=== PATIENT | female | born 1950 | race Caucasian/White ===

== ENCOUNTER → 2016-04-12 | Outpatient (CLI) | payer OTHER ==
[~2016-04-12] MED LIST: ALBU1AER9 INH; AZEL0.15 NAE; BROM0.07 OPR; CALC600T9 PO; FLUT27.5 NAE; GABA-112 PO; HYDR25TA5 PO; LISI40TA PO; METO1TAB71 PO; MULT-506 PO; OMEG10007 PO; OMEP40CA PO; OXYC5TAB PO; PLMIN90 INH; RIZA10TA19 PO; SERT-234 PO
--- NOTE | 2016-04-12 15:47 | MAMMOGRAPHY REPORT ---
ULTRASOUND OF LEFT BREAST: 04/12/2016 CLINICAL HISTORY: The patient has a history of bilateral mastectomies as well as a left axillary sen tinel lymph node which was positive for metastatic disease. The patient reports aching left axillar y pain for approximately 4 weeks. She denies any palpable lumps. She reports that she has been eng aging in strenuous activity which could account for the pain. COMPARISON: Comparison is made to exam dated: 02/21/2012 mammogram - [facility]. TECHNIQUE: Real-time ultrasound of the left axilla was performed. FINDINGS: Real-time, high-resolution ultrasound was performed of the left axilla. Multiple morphologically no rmal lymph nodes are seen within the left axillary region. There is no evidence of axillary adenopa thy. No suspicious masses or other suspicious sonographic abnormalities are evident. IMPRESSION: ACR BI-RADS CATEGORY 2: BENIGN No sonographic etiology for left axillary pain is evident. No axillary adenopathy is evident. Ther e is no sonographic evidence of malignancy. Recommend clinical follow-up for left axillary pain. T he patient was verbally notified of the results. Verito Herzog M.D. ah/:04/12/2016 14:08:21 Package Liner: Verito Herzog MD, [facility] letter sent: Normal 1/2 BI-RADS Code: ACR BI-RADS Category 2: Benign
== END | disposition home or self-care (01) ==
LOC: C.MAMM 13:44
PROVIDERS: ATTEND Internal Medicine Hematology
DX: M79.622 Pain in left upper arm (principal); Z90.13 Acquired absence of bilateral breasts and nipples; Z85.3 Personal history of malignant neoplasm of breast

== ENCOUNTER → 2016-07-01 | Outpatient (CLI) | payer OTHER ==
--- NOTE | 2016-07-01 15:28 | DIAGNOSTIC IMAGING REPORT ---
CHEST 2 VIEWS ROUTINE CLINICAL HISTORY: Productive cough, shortness of breath. Wheezing. COMPARISON STUDY: 08/16/2015 FINDINGS: The heart is normal in size. There is no failure. There is no focal pulmonary consolidation. There are no pleural effusions. There are surgical clips in the right axillary region and both breasts.[ IMPRESSION: No active disease in the chest. Electronically signed by: Demetrius Ruano M.D. 07/01/2016 3:26 PM Dictated Date/Time: 07/01/2016 3:25 PM
== END | disposition home or self-care (01) ==
LOC: C.RAD 14:51
PROVIDERS: ATTEND Internal Medicine Geriatric Medicine
DX: R05 Cough (principal)

== ENCOUNTER → 2016-09-11 | Outpatient (CLI) | payer OTHER ==
[~2016-09-11] MED LIST changes: +ASPI-391 PO; +ASPI81TA28 PO; +ASTN; +DIPH-416 PO; +METO-649 PO; -METO1TAB71 PO; +MOME100A INH; +OMEP40CA41 PO; +VNTHFA/IN INH
[2016-09-11 10:42] LABS: BASO % 0.5 %; BASO ABS # 0.03 K/uL (0-0.2); COMPLETE YES; EOS % 2.2 %; HEMATOCRIT 42.7 % (37-47); IG% 0.3 %; LYMPH % 20.2 %; LYMPH ABS # 1.31 K/uL (1.2-3.4); MEAN CELL VOLUME 92.4 fL (80-100); MEAN CORPUSCULAR HEMOGLOBIN 31.4 pg (25-34); MEAN PLATELET VOLUME 9.3 fL (7.4-10.4); MONO % 9.1 %; NEUT % 67.7 %; PLATELET COUNT 243 K/uL (130-400); RED BLOOD COUNT 4.62 M/uL (4.2-5.4); WHITE BLOOD COUNT 6.48 K/uL (4.8-10.8)
[2016-09-11 11:11] LABS: ESTIMATED AVERAGE GLUCOSE 126 mg/dl; HA1C FLAG Normal (Normal)
[2016-09-11 11:30] LABS: ALKALINE PHOSPHATASE 85 U/L (45-117); ALT/SGPT 30 U/L (12-78); AST/SGOT 20 U/L (15-37); BLOOD UREA NITROGEN 17 mg/dl (7-18); BUN/CREATININE RATIO 27.6 (10-20); CALCIUM 8.4 mg/dl (8.5-10.1); CARBON DIOXIDE 30 mmol/L (21-32); CHLORIDE 105 mmol/L (98-107); CHOLESTEROL 254 mg/dl (0-200); CHOLESTEROL/HDL RATIO 5.3; CREATININE 0.61 mg/dl (0.60-1.20); GLUCOSE 101 mg/dl (70-99); HDL CHOLESTEROL 48 mg/dl; LDL CHOLESTEROL CALCULATED 166 mg/dl; POTASSIUM 3.7 mmol/L (3.5-5.1); SODIUM 143 mmol/L (136-145); TRIGLYCERIDES 202 mg/dl (0-150); VERY LOW DENSITY LIPOPROT CALC 40 mg/dl
== END | disposition home or self-care (01) ==
LOC: C.LAB 09:53
PROVIDERS: ATTEND Internal Medicine Geriatric Medicine
DX: I10 Essential (primary) hypertension (principal); G43.009 Migraine without aura, not intractable, without status migrainosus; E78.5 Hyperlipidemia, unspecified; R73.9 Hyperglycemia, unspecified; J45.909 Unspecified asthma, uncomplicated; I48.0 Paroxysmal atrial fibrillation; M85.80 Other specified disorders of bone density and structure, unspecified site

== ENCOUNTER → 2016-12-06 | Outpatient (CLI) | payer OTHER ==
[~2016-12-06] MED LIST changes: -METO-649 PO; +METO1TAB71 PO
== END | disposition home or self-care (01) ==
LOC: C.PAPS 13:57
PROVIDERS: ATTEND Obstetrics & Gynecology
DX: Z12.4 Encounter for screening for malignant neoplasm of cervix (principal)

== ENCOUNTER → 2016-12-26 | Outpatient (CLI) | payer OTHER ==
[~2016-12-26] MED LIST changes: +OPTIRAY 320 IV PRN
--- NOTE | 2016-12-26 11:55 | DIAGNOSTIC IMAGING REPORT ---
ADDENDUM ADDENDUM: There is an error in the impression. The impression should read that there are no acute infectious or inflammatory findings in the abdomen. The pelvis was not imaged. All findings the body of report are unchanged. Electronically signed by: Iam Mercado M.D. 12/26/2016 1:25 PM Dictated Date/Time: 12/26/2016 1:[address] SCAN OF THE ABDOMEN WITH IV CONTRAST CLINICAL HISTORY: Generalized abdominal pain. COMPARISON STUDY: Abdominal CT dated 09/19/2005. PET/CT dated 04/10/2015. TECHNIQUE: Following the IV administration of 94 cc of Optiray 320, CT scan of the abdomen is performed from the lung bases to the pelvic inlet. Images are reviewed in the axial, sagittal, and coronal planes. IV contrast was administered without complication. A dose lowering technique was utilized adhering to the principles of ALARA. CT DOSE: 529.08 mGycm FINDINGS: Lung bases: The heart is normal in size and without pericardial effusion. The lung bases are clear. There is a small hiatal hernia. Liver: The contrast-enhanced liver is normal in size, contour, and attenuation. Focal fatty infiltration is seen adjacent to the falciform ligament. There is no intrahepatic biliary ductal dilatation. The hepatic veins and portal veins are patent. Gallbladder: Unremarkable. Spleen: Normal in size and attenuation. Pancreas: Unremarkable. Adrenal glands: Unremarkable. Kidneys: The contrast enhanced kidneys are normal in size and without hydronephrosis. The kidneys enhance symmetrically. A 1.4 cm cyst is noted on the right. Abdominal vasculature: The abdominal aorta is normal in course and caliber noting mild atherosclerotic calcification. Bowel: Visualized portions of the small bowel and colon are normal in course and caliber. The appendix is not visualized. Peritoneum: There is no intraperitoneal free air or abdominal ascites. There is a small fat-containing umbilical hernia. Lymphadenopathy: There is a 3.2 x 2.0 cm heterogeneously enhancing lesion the gastrohepatic space adjacent to the caudate lobe of the liver, likely representing a pathologically enlarged lymph node. This is seen on axial image #96. An additional mildly enlarged gastrohepatic node is seen on image #102 and measures up to 1.3 cm. Skeletal structures: The skeletal structures are osteopenic. Mild lumbosacral spondylosis is observed. No lytic or blastic lesions are seen. IMPRESSION: 1. There are no acute infectious or inflammatory findings in the abdomen or pelvis. 2. There is a 3.2 cm heterogeneously enhancing lesion in the gastrohepatic space which likely represents a pathologic lymph node. A second mildly enlarged gastrohepatic node is seen. These are new from the 04/10/2015 PET examination and neoplasm is the diagnosis of exclusion. This was likely best be assessed with endoscopy and biopsy. Electronically signed by: Iam Mercado M.D. 12/26/2016 11:53 AM Dictated Date/Time: 12/26/2016 11:30 AM
== END | disposition home or self-care (01) ==
LOC: C.CTS 10:54
PROVIDERS: ATTEND Internal Medicine Geriatric Medicine
DX: R10.84 Generalized abdominal pain (principal)

== ENCOUNTER → 2017-01-08 | Outpatient (CLI) | payer OTHER ==
[~2017-01-08] MED LIST changes: -ASPI-391 PO; -ASPI81TA28 PO; -ASTN; -DIPH-416 PO; -MOME100A INH; -OMEP40CA41 PO; -OPTIRAY 320 IV PRN; -VNTHFA/IN INH
--- NOTE | 2017-01-08 15:07 | DIAGNOSTIC IMAGING REPORT ---
PET/CT CLINICAL HISTORY: Breast cancer. TECHNIQUE: A PET/CT was performed from the skull base through the upper thighs following intravenous injection of 14.81 mCi of F 18 FDG IV. The injection was performed at 9:04 AM on January 08, 2017 and imaging began at 10:12 AM on January 08, 2017. Unenhanced CT was performed for attenuation correction purposes and anatomic localization. COMPARISON STUDY: PET CT April 10, [address] of the abdomen and pelvis December 26, 2016. FINDINGS: Head and neck: No enlarged cervical lymph nodes are identified. There is no abnormal FDG uptake within the neck. Chest: There are findings consistent with bilateral mastectomies with reconstruction. There is no axillary lymphadenopathy. Note is made of an enlarged subcarinal lymph node which is a new finding since PET/CT of April 10, 2015. This node measures 2 x 1.6 cm and has moderate FDG uptake with an SUV max of 4.7. No suspicious pulmonary nodules are identified although sensitivity is diminished due to respiratory motion artifact inherent PET/CT imaging. There is a calcified granuloma within the right lung. Abdomen and Pelvis: There is marked FDG uptake within a 2.8 x 2.1 cm gastrohepatic ligament lymph node with an SUV max of 10.8. This finding is also new since PET/CT of April 10, 2015 and this corresponds to the lymph node shown on recent abdominal CT. An adjacent 1 cm periceliac node shown on axial image 110 has moderate FDG uptake with an SUV max of 6.6. There are gallstones within the gallbladder. No additional sites of abnormal FDG uptake are identified within the abdomen or the pelvis. Numerous suspected uterine fibroids are present. There is no pelvic lymphadenopathy. Musculoskeletal: No suspicious skeletal uptake is identified. IMPRESSION: Marked FDG uptake within a 2.8 x 2.1 cm gastrohepatic ligament lymph node with moderate uptake within a mildly enlarged periceliac lymph node and an enlarged subcarinal lymph node. The findings are highly suggestive of a neoplastic process and favor metastatic disease. Lymphoma could appear similar although is considered less likely. Electronically signed by: Jeremiah Lamb M.D. 01/08/2017 3:06 PM Dictated Date/Time: 01/08/2017 12:22 PM
== END | disposition home or self-care (01) ==
LOC: C.PET 08:43
PROVIDERS: ATTEND Internal Medicine Hematology
DX: C50.911 Malignant neoplasm of unspecified site of right female breast (principal); C73 Malignant neoplasm of thyroid gland; R59.0 Localized enlarged lymph nodes

== ENCOUNTER → 2017-01-24 | Day surgery (SDC) | payer OTHER ==
[2017-01-16 10:00] VITALS: BMI 31.0
[~2017-01-24] VITALS: Ht 152.4 cm; Wt 72.7 kg
[~2017-01-24] MED LIST changes: -ALBU1AER9 INH; +ASPI-391 PO; +ASPI81TA28 PO; +ASTN; +ATROPINE SULFATE 0.1 MG/ML 5ML SYR IV PRN; -AZEL0.15 NAE; -BROM0.07 OPR; +DIPH-416 PO; +FENTANYL CITRATE INJ 50 MCG/1 ML 2 ML VIAL IV PRN; -FLUT27.5 NAE; -GABA-112 PO; -HYDR25TA5 PO; +KETAMINE HCL INJ 50 MG/ML 10 ML VIAL ONE; +LIDOCAINE HCL 2% 2 ML VIAL (20MG/ML) ONE; +MIDAZOLAM HCL 1 MG/ML 2ML VIAL ONE; +MOME100A INH; -OMEP40CA PO; +OMEP40CA41 PO; +ONDANSETRON INJ 2 MG/ML 2 ML VIAL IV PRN; -OXYC5TAB PO; -PLMIN90 INH; +PROPOFOL IV EMULSION 10 MG/ML 20 ML VIAL IV ONE; +SODIUM CHLORIDE 0.9% 500ML 500 ML IV ONE; +VNTHFA/IN INH
[2017-01-24 14:12] VITALS: BP 139/91; PULSE 71; TEMP 36.6; O2SAT 97; Ht 152.4 cm; Wt 72.7 kg
--- NOTE | 2017-01-24 15:19 | Progress Note ---
Progress Note Date of Service Jan 24, 2017. Progress Note [facility] [address] [place] [address] Endoscopy History & Physical Patient Name: Megan Troncoso Unit Number: [id number] Date of : 1950 Patient Status: Registered Surgical Day Care Attending Doctor: Simón Bloom MD History & Physical - GI History & Physical Date of Service: Jan 24, 2017. Chief Complaint: Referring Physician: History of Present Illness 66 year-old female, a case of left breast carcinoma, S/P lumpectomy and sentinel lymph felipe biopsy by Dr. Vyas, primary tumor measuring 1.7 cm, one sentinel lymph node positive for metastatic disease measuring 3 mm, Oncotype DX recurrence score 17 which falls into low-risk category, she then opted for bilateral mastectomies~(May,). ~She had right breast cancer earlier in 2000. Her several years of normal surveillance CT PET scans, after development of abdominal pain chest CT scan and subsequent PET scan that revealed a large gastrohepatic lymph node that was metabolically active. She is presenting for an endoscopic ultrasound for evaluation of this abdominal lymph node. CT PET scan There is marked FDG uptake within a 2.8 x 2.1 cm gastrohepatic ligament lymph node with an SUV max of 10.8. This finding is also new since PET/CT of April 10, 2015 and this corresponds to the lymph node shown on recent abdominal CT. An adjacent 1 cm periceliac node shown on axial image 110 has moderate FDG uptake with an SUV max of 6.6. There are gallstones within the gallbladder. No additional sites of abnormal FDG uptake are identified within the abdomen or the pelvis. Numerous suspected uterine fibroids are present. There is no pelvic lymphadenopathy. Past Medical History Arthritis, Asthma, Pulmonary Emboli, Anxiety, Reflux, Cancer, Sleep Apnea, Hypertension, Depression Past Surgical History Hx Cardiac Surgery: No Hx Abdominal Surgery: No Hx Post-Op Nausea and Vomiting: Yes Hx Cancer Surgery: Yes (RIGHT LUMPECTOMY, DOUBLE MASTECTOMY) Hx Thoracic Surgery: No Hx Orthopedic: No (LEFT ANKLE ORIF) Hx Urinary Tract Surgery: Yes (bladder sling) Social History Smoking Status: Never Smoker Hx Substance Use: No Hx Alcohol Use: No Allergies Coded Allergies: Morphine (Verified Allergy, Intermediate, MAKES HER CRAZY, 01/24/17) Adhesives (Verified Allergy, Unknown, ITCHY SKIN, 01/24/17) Esomeprazole (Verified Adverse Reaction, Unknown, listed on [facility]/ dr. sofia consult, 01/24/17) Current Medications Reported Home Medications Medications Dose Route/Sig Max Daily Dose Days Date Category Aspirin Ec (Aspirin) 81 Mg Tab 81 Mg PO QAM 01/16/17 Reported Excedrin Extra Strength (Empvqqc-Imfrffjynhzwc-Gsihsrpt) 1 Tab Tab 1 Tab PO 3-4WEEKLY PRN 01/16/17 Reported Lomotil (Diphenoxylate HCl/Atropine) Tab 1 Tab PO BID PRN 01/16/17 Reported Astelin Nasal Angelica (Azelastine Hcl) 200 Sprays/30 Ml Angelica 1-2 Sprays NA BID 01/16/17 Reported Dulera 100/5 Mcg (Mometasone Furoate-Formoterol) 1 Aer Aer 2 Aer INH QAM 01/16/17 Reported Prilosec (Omeprazole) 40 Mg Cap 40 Mg PO QAM 01/16/17 Reported Ventolin Hfa (Albuterol) 200 Puffs/40339 Mcg Aers 1-2 Puffs INH Q6H PRN 01/16/17 Reported Multivitamin (Multivitamins) Tab 1 Tab PO QAM 06/22/15 Reported Calcium + D (Calcium Carbonate-Vitamin D) 1 Tab Tab 1 Tab PO QAM 06/22/15 Reported Hancock-3 (Fish Oil) 1 Ea Cap 1 Cap PO QAM 06/22/15 Reported Prinivil (Lisinopril) 40 Mg Tab 40 Mg PO QPM 06/22/15 Reported Zoloft (Sertraline HCl) 100 Mg Tab 200 Mg PO QPM 06/22/15 Reported Toprol-Xl (Metoprolol Succinate) 200 Mg Tabcr 200 Mg PO QPM 04/01/12 Reported Maxalt[employer] (Rizatriptan Benzoate) 10 Mg Tab 10 Mg PO UD PRN 04/01/12 Reported Vital Signs Weight (Kilograms): 72.73 Height (Feet): 5 Height (Inches): 0 Physical Exam General Appearance: WD/WN, no apparent distress Respiratory/Chest: Respiratory effort: no dyspnea Auscultation: breath sounds normal Cardiovascular: Heart Auscultation: RRR, normal S1 Abdomen: Bowel Sounds: normal Inspection & Palpation: soft, non-distended Assessment and Plan 66-year-old with recurrent breast cancer, status post remote recovery of bilateral mastectomies now with a metabolically active abdominal lymph node presenting for endoscopic ultrasound.
--- NOTE | 2017-01-24 16:21 | Discharge Instructions ---
Endoscopy Patient Instructions Date / Procedure(s) Performed Jan 24, 2017. Other (Endoscopic ultrasound) Allergy Information Coded Allergies: Morphine (Verified Allergy, Intermediate, MAKES HER CRAZY, 01/24/17) Adhesives (Verified Allergy, Unknown, ITCHY SKIN, 01/24/17) Esomeprazole (Verified Adverse Reaction, Unknown, listed on [facility]/ dr. sofia consult, 01/24/17) Discharge Date / Findings Jan 24, 2017. Large abdominal lymph nodes Fine needle aspiration was performed. Provider Instructions Activity Restrictions - No exercising or heavy lifting for 24 hours. - Do not drink alcohol the day of the procedure. - Do not drive a car or operate machinery until the day after the procedure. - Do not make any important decisions or sign important papers in 24 hours after the procedure. Following Day: - Return to full activity which may include returning to work/school. Diet Start your diet with liquids and light foods (jello, soup, juice, toast). Then eat your usual diet if not nauseated. Treatment For Common After Affects For mild abdominal pain, bloating, or excessive gas: - Rest - Eat lightly - Lie on right side Follow-Up Information Follow-up with as scheduled Anesthesia Information What You Should Know You have had a procedure that required some medicine to reduce anxiety and discomfort. This treatment is called moderate sedation. After receiving the treatment, you may be sleepy, but you will be able to breathe on your own. The effects of the treatment may last for several hours. Follow these instructions along with Activity/Diet recommendations noted above: * Do NOT do anything where dizziness or clumsiness would be dangerous. * Rest quietly at home today, then you can be up and about tomorrow. * Have a responsible person stay with you the rest of today. * You may have had an I.V. today. If so, you may take the dressing off later today. Recommendations Call your doctor if: * Trouble breathing * Continuous vomiting for more than 24 hours * Temperature above 101 degrees * Severe abdominal pain or bloating * Pain not relieved by pain medicine ordered * There is increased drainage or redness from any incision * A large amount of rectal bleeding greater than 2-3 tablespoons. (If you had a polyp/s removed or have hemorrhoids, a small amount of blood - from the rectum is to be expected.) * You have any unanswered questions or concerns. IN THE EVENT OF A SERIOUS EMERGENCY, GO TO THE NEAREST EMERGENCY ROOM Your discharge instructions were prepared by provider Simón Bloom. Patient Instructions Signature Page Megan Troncoso Patient (or Guardian) Signature/Date: I have read and understand the instructions given to me by my caregivers. Caregiver/RN/Doctor Signature/Date: The above-named patient and/or guardian has received patient instructions on this date. + Original Patient Signature Page (only) stays with chart. Please make copy for patient.
--- NOTE | 2017-01-24 16:34 | GI REPORT ---
Procedure Date: 01/24/2017 3:47 PM Procedure: Upper EUS Indications: Lymphadenopathy on CT scan-Positive on PET scan and history of recurrent pancreatitis. Medicines: General Anesthesia Complications: No immediate complications. Estimated blood loss: None. Estimated Blood Loss: Estimated blood loss: none. Procedure: Pre-Anesthesia Assessment: - Pre-Anesthesia Assessment: - Prior to the procedure, a History and Physical was performed, and patient medications, allergies and sensitivities were reviewed. The patient's tolerance of previous anesthesia was reviewed. Please see [employer] for complete details. - The risks and benefits of the procedure and the sedation options and risks were discussed with the patient. All questions were answered and informed consent was obtained. - Patient identification and proposed procedure were verified prior to the procedure by the physician and the nurse. The procedure was verified in the pre-procedure area in the procedure room. After obtaining informed consent, the endoscope was passed carefully and meticuously under direct vision and only advanced when the lumen was clearly identified, C02 insuflation was utilized throughout the entirity of the procedure. Throughout the procedure, the patient's blood pressure, pulse, and oxygen saturations were monitored continuously. After obtaining informed consent, the endoscope was passed under direct vision. Throughout the procedure, the patient's blood pressure, pulse, and oxygen saturations were monitored continuously. The Endosonoscope was introduced through the mouth, and advanced to the second part of duodenum. The upper EUS was accomplished without difficulty. The patient tolerated the procedure well. Findings: Endosonographic Finding : There was no sign of significant endosonographic abnormality in the entire pancreas. There was no sign of significant endosonographic abnormality in the left lobe of the liver. Two malignant-appearing lymph nodes were visualized in the celiac region (level 20). The largest measured 30 mm by 23 mm in maximal cross-sectional diameter. The nodes were round, hypoechoic and had well defined margins. Fine needle aspiration for cytology was performed. Color Doppler imaging was utilized prior to needle puncture to confirm a lack of significant vascular structures within the needle path. Four passes were made with the 22 gauge needle using a transgastric approach. A stylet was used. A processor grain was present and performed a preliminary cytologic examination. Preliminary cytology is suspicious for malignancy (final results are pending). Impression: - There was no sign of significant pathology in the entire pancreas. - There was no evidence of significant pathology in the left lobe of the liver. - Two malignant-appearing lymph nodes were visualized in the celiac region (level 20). Fine needle aspiration performed. Recommendation: - Discharge patient to home (with escort). - Return to referring physician as previously scheduled. Simón Bloom MD 01/24/2017 4:34:03 PM This report has been signed electronically. Note Initiated On: 01/24/2017 3:47 PM I attest to the content of the Intraoperative Record and orders documented therein, exceptions below
[2017-01-24 16:53] VITALS: BP 168/88; PULSE 63; TEMP 36.7; O2SAT 96
--- NOTE | 2017-01-24 16:58 | Anesthesiology Progress Note ---
Anesthesia Post Op Note Date & Time Jan 24, 2017 at 16:58 Vital Signs Pain Intensity: 0 Vital Signs Past 12 Hours Date Time Temp Pulse Resp B/P (MAP) Pulse Ox O2 Delivery O2 Flow Rate FiO2 01/24/17 16:40 36.2 66 16 158/89 95 Room Air 01/24/17 16:35 65 16 151/94 95 Room Air 01/24/17 16:26 36.2 74 16 155/96 92 Room Air 01/24/17 14:12 36.6 71 18 139/91 (107) 97 Room Air Notes Mental Status: alert / awake / arousable, participated in evaluation Pt Amnestic to Procedure: Yes Nausea / Vomiting: adequately controlled Pain: adequately controlled Airway Patency, RR, SpO2: stable & adequate BP & HR: stable & adequate Hydration State: stable & adequate Anesthetic Complications: no major complications apparent
[2017-01-24 17:25] VITALS: BP 168/82; PULSE 67; TEMP 36.7; O2SAT 97
== END | disposition home or self-care (01) ==
LOC: C.ACU 13:25
PROVIDERS: ATTEND Internal Medicine
DX: R59.0 Localized enlarged lymph nodes (principal); K86.1 Other chronic pancreatitis; C50.912 Malignant neoplasm of unspecified site of left female breast; I10 Essential (primary) hypertension; G47.30 Sleep apnea, unspecified; K21.9 Gastro-esophageal reflux disease without esophagitis; J45.909 Unspecified asthma, uncomplicated; F32.9 Major depressive disorder, single episode, unspecified; F41.9 Anxiety disorder, unspecified; Z86.711 Personal history of pulmonary embolism; Z79.82 Long term (current) use of aspirin; Z79.899 Other long term (current) drug therapy

== ENCOUNTER → 2017-02-13 | Outpatient (CLI) | payer OTHER ==
[~2017-02-13] MED LIST changes: -ATROPINE SULFATE 0.1 MG/ML 5ML SYR IV PRN; -FENTANYL CITRATE INJ 50 MCG/1 ML 2 ML VIAL IV PRN; -KETAMINE HCL INJ 50 MG/ML 10 ML VIAL ONE; -LIDOCAINE HCL 2% 2 ML VIAL (20MG/ML) ONE; +METO-649 PO; -METO1TAB71 PO; -MIDAZOLAM HCL 1 MG/ML 2ML VIAL ONE; -ONDANSETRON INJ 2 MG/ML 2 ML VIAL IV PRN; -PROPOFOL IV EMULSION 10 MG/ML 20 ML VIAL IV ONE; -SODIUM CHLORIDE 0.9% 500ML 500 ML IV ONE
== END | disposition home or self-care (01) ==
LOC: C.MAMM 08:54
PROVIDERS: ATTEND Internal Medicine Hematology
DX: M81.0 Age-related osteoporosis without current pathological fracture (principal); M85.88 Other specified disorders of bone density and structure, other site; M85.851 Other specified disorders of bone density and structure, right thigh; M85.852 Other specified disorders of bone density and structure, left thigh

== ENCOUNTER → 2017-04-08 | Outpatient (CLI) | payer OTHER ==
[~2017-04-08] MED LIST changes: +AFRINWC INTNAS; +BENZ100C7 PO; +BENZ100C84 PO; +DXM/4 PO; +FMR25 PO; +HYDR12.56 PO; -METO-649 PO; +METO100T44 PO; +METO200T32 PO; +OXYM0.0592 INTNAS; +PROC10TA PO; +RANI150T85 PO; +TPRSR/50 PO; +TRAM-10 PO; +ULT/50 PO
== END | disposition home or self-care (01) ==
LOC: C.LABBFT 09:33
PROVIDERS: ATTEND Internal Medicine Geriatric Medicine
DX: Z11.59 Encounter for screening for other viral diseases (principal)

== ENCOUNTER → 2017-04-23 | Outpatient (CLI) | payer OTHER ==
[~2017-04-23] MED LIST changes: -AFRINWC INTNAS; -BENZ100C7 PO; -BENZ100C84 PO; -DXM/4 PO; -FMR25 PO; -HYDR12.56 PO; -METO100T44 PO; -OXYM0.0592 INTNAS; -PROC10TA PO; -RANI150T85 PO; -TPRSR/50 PO; -TRAM-10 PO; -ULT/50 PO
--- NOTE | 2017-04-23 13:32 | DIAGNOSTIC IMAGING REPORT ---
PET/CT SKULL-THIGH CLINICAL HISTORY: 67 years-old Female with BREAST CANCER. Follow-up study in a patient with hypermetabolic adenopathy of the upper abdomen with mildly enlarged subcarinal lymph node. COMPARISON: PET CT 01/08/2017 TECHNIQUE: The patient was injected with 11.69 mCi of F-18 fluorodeoxyglucose (FDG) and an emission scan was performed from the skull vertex to the toes. Noncontrast CT was performed for attenuation correction and anatomic localization. The blood glucose level was 100 mg/dl. FINDINGS: HEAD AND NECK: Increased metabolic activity is noted within the left pharyngeal region anterior and superior to the level of the epiglottis without focal abnormality identified on the CT images which is likely secondary to physiologic activity with misregistration. Salivary gland uptake is also noted. Otherwise, there is a physiologic distribution of activity, with no hypermetabolic foci. CHEST: Enlarged subcarinal lymph node is again seen, 2.3 x 1.7 cm, previously 2.0 x 1.6 cm. This lesion is mildly hypermetabolic with SUV max of 2.7, previously 4.7. No additional pathologically enlarged or hypermetabolic lymph nodes of the chest identified. Ill-defined 8 x 6 mm ground glass nodule of the right lower lobe is seen on image 60 series 2 demonstrating mildly increased metabolic activity, SUV max of 2.6. Additionally, there is mildly increased metabolic activity associated with patchy groundglass opacities of the basal left lower lobe suggesting infectious or inflammatory etiology. ABDOMEN AND PELVIS: Enlarged gastrohepatic ligament lymph node measures 2.7 x 2.2 cm, previously 2.8 x 2.1 cm and again demonstrates increased metabolic activity with SUV max of 4.6, previously 10.8. Unchanged 9 x 8 mm periceliac lymph node is again seen without significant hypermetabolic activity identified. The size of the node appears unchanged from comparison however this lesion was previously hypermetabolic. Otherwise, there is a physiologic distribution of activity within the liver, spleen, adrenal glands, gastrointestinal and urinary tracts, with no additional hypermetabolic foci. MUSCULOSKELETAL SYSTEM AND EXTREMITIES: There is a physiologic distribution of activity within the bone marrow, with no hypermetabolic foci. ADDITIONAL CT FINDINGS: Heart appears mildly enlarged. Fibroid uterus. Urinary bladder is decompressed. Mild colonic diverticulosis without CT evidence of acute diverticulitis. Prior ventral abdominal wall herniorrhaphy. Degenerative changes are seen within the lower lumbar spine. IMPRESSION: 1. Decreased metabolic activity involving the enlarged subcarinal and gastrohepatic ligament lymph nodes, however the subcarinal lymph node has slightly increased in size from comparison. 2. Mildly prominent periceliac lymph node is stable in size however demonstrates decreased metabolic activity. 3. No new hypermetabolic adenopathy identified. 4. Mildly FDG avid 8 x 6 mm groundglass nodule of the right lower lobe is noted along with mildly hypermetabolic groundglass opacities of the basal left lower lobe suggesting infectious or inflammatory pneumonitis. Follow-up imaging to document resolution is recommended. 5. Increased metabolic activity within the pharyngeal region without abnormality seen on the correlate CT images is likely physiologic. This could be correlated with direct visualization if of further clinical concern. The above report was generated using voice recognition software. It may contain grammatical, syntax or spelling errors. Electronically signed by: Jaron Thomson M.D. 04/23/2017 1:31 PM Dictated Date/Time: 04/23/2017 12:36 PM
== END | disposition home or self-care (01) ==
LOC: C.PET 08:57
PROVIDERS: ATTEND Internal Medicine Hematology
DX: C50.912 Malignant neoplasm of unspecified site of left female breast (principal); C77.2 Secondary and unspecified malignant neoplasm of intra-abdominal lymph nodes

== ENCOUNTER 2017-05-06 11:30 | Day surgery (SDC) | payer OTHER ==
[~2017-05-06] VITALS: Ht 167.6 cm; Wt 75.5 kg
[~2017-05-06 11:30] MED LIST changes: +CISATRACURIUM BESYLATE IV SOLN 2 MG/ML 10 ML VIAL ONE; +DEXAMETHASONE SOD INJ 4 MG/ML VIAL ONE; +FENTANYL CITRATE INJ 50 MCG/1 ML 2 ML VIAL ONE; +LACTATED RINGER'S 1000ML 1,000 ML IV SCH; +LIDOCAINE HCL 2% 2 ML VIAL (20MG/ML) ONE; +ONDANSETRON INJ 2 MG/ML 2 ML VIAL ONE; +PROPOFOL IV EMULSION 10 MG/ML 20 ML VIAL IV ONE; +SUCCINYLCHOLINE CHLORIDE 20 MG/ML 10 ML VIAL IV ONE
[2017-05-06 12:38] VITALS: BP 152/87; PULSE 62; TEMP 37.3; O2SAT 98; Ht 167.6 cm; Wt 75.5 kg
--- NOTE | 2017-05-06 12:38 | History & Physical Bridge Note ---
H&P Re-Evaluation Bridge Note: I have examined the patient, reviewed the History & Physical and in the interval since the performance of the History & Physical I have noted the following changes of clinical significance: No changes noted
[2017-05-06] MEDS ORDERED: CEFAZOLIN SOD 1 GM VIAL ONE (13:20)
[2017-05-06] MEDS ORDERED: ULT/50 PO (13:24)
--- NOTE | 2017-05-06 13:26 | Discharge Instructions ---
Discharge Instructions Date of Service May 06, 2017. Visit Reason for Visit: Mediastinal Lymphadenopathy Discharge Discharge Diagnosis / Problem: Mediastinal Lymphadenopathy Discharge Goals Goal(s): Learn about illness Activity Recommendations Activity Limitations: resume your previous activity (in 24 hours) Anesthesia . Post Anesthesia Instructions: If you have had General Anesthesia or IV Sedation: * Do not drive today. * Resume driving when surgeon permits. * Do not make important decisions or sign legal documents today. * Call surgeon for: 1. Temperature elevations greater than 101 degrees F. 2. Uncontrollable pain. 3. Excessive bleeding. 4. Persistent nausea and vomiting. 5. Medication intolerance (nausea, vomiting or rash). * For nausea and vomiting use only clear liquids such as: tea, soda, bouillon until nausea subsides, then gradually increase diet as tolerated. * If you have any concerns or questions, call your surgeon's office. If physician is unavailable and it is an emergency, call 911 or go to the nearest emergency room. . Instructions / Follow-Up Instructions / Follow-Up 1. y omay remove dressings in 3 days and shower thereafter. No tub baths. 2. Keep your scheduled appointment with Dr. Mcgee on May 13, 2017 @ 9: 30am. Diet Recommendations Recommended Home Diet: resume previous diet Pending Studies Studies pending at discharge: no Medical Emergencies . Who to Call and When: Medical Emergencies: If at any time you feel your situation is an emergency, please call 911 immediately. . Non-Emergent Contact Non-Emergency issues call your: Surgeon Call Non-Emergent contact if: you have a fever, your pain is not controlled, wound has increased drainage . . "Provider Documentation" section prepared by Cesario Mahoney. .
[2017-05-06] MEDS ORDERED: ACETAMINOPHEN 1000 MG/100 ML IV IV ONE (13:27)
--- NOTE | 2017-05-06 14:22 | [facility] Post Operative Brief Note ---
Immediate Operative Summary Operative Date May 06, 2017. Pre-Operative Diagnosis Enlarging subcarinal lymph node Post-Operative Diagnosis Enlarging subcarinal lymph node Procedure(s) Performed Video mediastinoscopy with lymoph node biopsies Surgeon Dr. Nick Mcgee MD Shell Grader Surgeon(s) Tae aMhoney PA-C Estimated Blood Loss 5ml Findings Consistent with Post-Op Diagnosis Specimens FRozen Section #1. Level 7 Lymph Node Permanent Specimens A. Level 7 Lymph Node B. Level R10 Lymph Node C. Level R4 Lymph Node Anesthesia Type General
[2017-05-06] MEDS ORDERED: TRAMADOL HCL 50 MG TAB PO PRN (14:30)
[2017-05-06] MEDS ORDERED: NEOSTIGMINE METHYLSULFATE 5 MG/5 ML SYR ONE (14:33)
[2017-05-06] MEDS ORDERED: GLYCOPYRROLATE INJ 0.2 MG/ML VIAL ONE (14:33)
[2017-05-06] MEDS ORDERED: FLUMAZENIL 0.1 MG/1 ML 10 ML VIAL IV PRN (14:45)
[2017-05-06] MEDS ORDERED: LABETALOL HCL IV 5 MG/ML 20ML IV PRN (14:45)
[2017-05-06] MEDS ORDERED: ONDANSETRON INJ 2 MG/ML 2 ML VIAL IV PRN (14:45)
[2017-05-06] MEDS ORDERED: PROMETHAZINE HCL INJ 12.5 MG in SODIUM CHLORIDE 0.9% 50ML 50 ML IV PRN (14:45)
[2017-05-06] MEDS ORDERED: NALOXONE HCL 0.4 MG/1 ML VIAL/CARP IV PRN (14:45)
[2017-05-06] MEDS ORDERED: EpHEDrine SULFATE INJ 50 MG/ML AMP IV PRN (14:45)
[2017-05-06] MEDS ORDERED: ATROPINE SULFATE 0.1 MG/ML 5ML SYR IV PRN (14:45)
[2017-05-06] MEDS ORDERED: FENTANYL CITRATE INJ 50 MCG/1 ML 2 ML VIAL IV PRN (14:45)
--- NOTE | 2017-05-06 15:06 | DIAGNOSTIC IMAGING REPORT ---
CHEST ONE VIEW PORTABLE CLINICAL HISTORY: mediastinoscopy COMPARISON STUDY: 07/01/2016 FINDINGS: The cardiac and mediastinal contours remain stable. Surgical clips project over the right axillary region. There is a clip projected over the right mid to lower lung zone. Surgical clips project over the left breast. There is no focal pulmonary consolidation. There is no failure. There are no pleural effusions. There is no evidence of pneumothorax.[ IMPRESSION: 1. No active disease in the chest 2. No evidence of pneumothorax Electronically signed by: Demetrius Ruano M.D. 05/06/2017 3:05 PM Dictated Date/Time: 05/06/2017 3:03 PM
--- NOTE | 2017-05-06 15:13 | Anesthesiology Progress Note ---
Anesthesia Post Op Note Date & Time May 06, 2017 at 15:12 Vital Signs Pain Intensity: 0 Vital Signs Past 12 Hours Date Time Temp Pulse Resp B/P (MAP) Pulse Ox O2 Delivery O2 Flow Rate FiO2 05/06/17 15:05 83 16 159/93 93 Room Air 05/06/17 14:55 91 20 124/98 98 Oxymask 10 05/06/17 14:45 92 13 170/119 99 Oxymask 05/06/17 14:37 36.0 100 16 154/86 97 Oxymask 10 05/06/17 12:38 37.3 62 18 152/87 (108) 98 Room Air Notes Mental Status: alert / awake / arousable, participated in evaluation Pt Amnestic to Procedure: Yes Nausea / Vomiting: adequately controlled Pain: adequately controlled Airway Patency, RR, SpO2: stable & adequate BP & HR: stable & adequate Hydration State: stable & adequate Anesthetic Complications: no major complications apparent
[2017-05-06 15:20] VITALS: BP 133/81; PULSE 80; TEMP 36.7; O2SAT 91
[2017-05-06 15:50] VITALS: BP 154/84; PULSE 80; O2SAT 92
[2017-05-06 16:15] VITALS: BP 156/92; PULSE 80; TEMP 36.5; O2SAT 92
--- NOTE | 2017-05-06 17:28 | OPERATIVE REPORT ---
DATE OF OPERATION: 05/06/2017 PREOPERATIVE DIAGNOSIS: Mediastinal involvement of cancer. POSTOPERATIVE DIAGNOSIS: Same. PROCEDURE: Video mediastinoscopy. SURGEON: Dr. Mcgee. NATURAL SCIENCES PROFESSOR: Cesario Mahoney (MrHaja Maru was present throughout the case and helped hold the scope steady while we did biopsies and passed instruments. He also closed the incision at the conclusion). ANESTHESIA: General anesthesia endotracheal intubation. 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 This was by biopsied with an endoscopic ultrasound by Dr. Simón Bloom. She then underwent an endobronchial ultrasound biopsy of the level [address] Artie Herman because she appeared to have been responding to chemotherapy, but this level 7 node had grown. There was also some hypermetabolic activity. Needle biopsy showed this was indeed a breast cancer; however, there was some confusion on the receptor analysis and a question was raised about whether the patient had a new primary or this was the same that cancer she had had before. We had a long talk about this in the office yesterday. I set her up for mediastinoscopy to help answer this question. On 04/05/2018, the patient was brought to the operating room and underwent an uncomplicated video mediastinoscopy. I biopsied the right level 4, right level 10 and level 7 node and in fact we removed almost the entire level 7 node. We did not go on to the left side. She tolerated it quite well. DESCRIPTION OF PROCEDURE: The patient brought to the operating room and laid in supine position. General anesthesia induced and endotracheal intubation was performed. She was prepped and draped in the sterile fashion. Incision was made one fingerbreadth above the sternal notch. Sharp and blunt dissection used to dissect down pretracheal fascia. The strap muscles were divided in the midline under the direction of fibers. Blunt dissection was then used and we easily were able to get the video mediastinoscopy in. I biopsied the level 4 node above the azygos and the level 10 node below the azygos. We then got down to level 7 node, this was a hard white node and I removed almost in its entirety. Bleeding was controlled with cautery. Frozen section of this was reviewed with Dr. 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 There should be enough tissue to do receptor analysis and genomics. I slowly withdrew the video mediastinoscope and he had no further bleeding. 3-0 Vicryl was used to close the strap muscles. 4-0 Monocryl was used in a running subcuticular fashion to approximate the wound edges. She tolerated it quite well. Sterile dressings were applied. She was transported back to the postanesthesia care unit in stable condition. I attest to the content of the Intraoperative Record and any orders documented therein. Any exception s are noted below.
== END 2017-05-06 16:20 | disposition home or self-care (01) ==
LOC: C.ACU 11:30
PROVIDERS: ATTEND Surgery
DX: C77.1 Secondary and unspecified malignant neoplasm of intrathoracic lymph nodes (principal); C50.919 Malignant neoplasm of unspecified site of unspecified female breast; J45.909 Unspecified asthma, uncomplicated; F41.8 Other specified anxiety disorders; E78.5 Hyperlipidemia, unspecified; K21.9 Gastro-esophageal reflux disease without esophagitis; I10 Essential (primary) hypertension; M19.90 Unspecified osteoarthritis, unspecified site; G62.9 Polyneuropathy, unspecified; Z86.711 Personal history of pulmonary embolism; Z79.899 Other long term (current) drug therapy

== ENCOUNTER → 2017-06-11 | Outpatient (CLI) | payer OTHER ==
[~2017-06-11] MED LIST changes: +AFRINWC INTNAS; +BENZ100C7 PO; +BENZ100C84 PO; -CISATRACURIUM BESYLATE IV SOLN 2 MG/ML 10 ML VIAL ONE; -DEXAMETHASONE SOD INJ 4 MG/ML VIAL ONE; +DXM/4 PO; -FENTANYL CITRATE INJ 50 MCG/1 ML 2 ML VIAL ONE; +FMR25 PO; +HYDR12.56 PO; -LACTATED RINGER'S 1000ML 1,000 ML IV SCH; -LIDOCAINE HCL 2% 2 ML VIAL (20MG/ML) ONE; +METO100T44 PO; -ONDANSETRON INJ 2 MG/ML 2 ML VIAL ONE; +OXYM0.0592 INTNAS; +PROC1TAB5 PO; -PROPOFOL IV EMULSION 10 MG/ML 20 ML VIAL IV ONE; +RANI150T85 PO; -SUCCINYLCHOLINE CHLORIDE 20 MG/ML 10 ML VIAL IV ONE; +TPRSR/50 PO; +TRAM-10 PO; +ULT/50 PO
--- NOTE | 2017-06-11 12:21 | ECHOCARDIOGRAM REPORT ---
*NOTICE TO RECEIVING DEMOCRAT AGENCY This information is strictly Confidential and protected under [place] law. [place] law prohibits you from making any further disclosure of this information unless further disclosure is expressly permitted by the written consent of the person to whom it pertains or is authorized by law. A general authorization for the release of medical or other information is not sufficient for this purpose. Hospital accepts no responsibility if the information is made available to any other person, INCLUDING THE PATIENT. Interpretation Summary * Name: KEREN COOK Study Date: 06/11/2017 08:00 AM BP: 156/92 mmHg * Patient Location: [facility] HR: 72 * : 1950 (M/d/yyyy) Gender: Female Height: 60 in * Age: 67 yrs Ethnicity: CA Weight: 163 lb * Ordering Physician: Ryan Arreaga * Referring Physician: Ryan Arreaga * Performed By: Kristin Galvan RCS * * Reason For Study: B/L MALIGNANT NEOPLASM OF BREAST * BSA: 1.7 m2 * -- Conclusions -- * Left ventricular systolic function is normal. * No regional wall motion abnormalities noted. * Ejection Fraction = 60-65%. * There is mild concentric left ventricular hypertrophy. * Grade I diastolic dysfunction, (abnormal relaxation pattern). Procedure Details * Left Ventricle The left ventricle is normal in size. There is mild concentric left ventricular hypertrophy. Left ventricular systolic function is normal. Ejection Fraction = 60-65%. No regional wall motion abnormalities noted. * Right Ventricle The right ventricle is normal size. The right ventricular systolic function is normal as assessed by tricuspid annular plane systolic excursion (TAPSE) (normal >1.5 cm). * Atria The left atrial size is normal. Right atrial size is normal. No ASD detected; PFO is not assessed. * Mitral Valve The mitral valve anatomy is normal. There is no mitral valve stenosis. Significant mitral regurgitation is absent. * Tricuspid Valve The tricuspid valve is not well visualized, but is grossly normal. Significant tricuspid regurgitation is absent. * Aortic Valve The aortic valve is trileaflet. The aortic valve opens well. No hemodynamically significant valvular aortic stenosis. There is no significant aortic regurgitation. * Pulmonic Valve The pulmonary valve is not well seen, but the Doppler examination is normal without significant regurgitation or stenosis. * Great Vessels The aortic root is normal size. * Pericardium/Pleural There is no pericardial effusion. * Great Vessels Normal inferior vena cava size and collapsability with sniff indicates a normal right atrial pressure of 3 mmHg * Left Ventricular Diastolic Function Grade I diastolic dysfunction, (abnormal relaxation pattern). * * MMode 2D Measurements and Calculations * IVSd 1.4 cm * IVSs 1.7 cm * * LVIDd 3.5 cm * LVIDs 2.3 cm * LVPWd 1.2 cm * LVPWs 1.6 cm * * IVS/LVPW 1.1 * FS 36.3 % * EDV(Teich) 52.5 ml * ESV(Teich) 17.3 ml * EF(Teich) 67.0 % * * EDV(cubed) 44.6 ml * ESV(cubed) 11.5 ml * EF(cubed) 74.2 % * % IVS thick 22.3 % * % LVPW thick 37.5 % * * LV mass(C)d 153.1 grams * LV mass(C)dI 89.4 grams/m\S\2 * LV mass(C)s 135.1 grams * LV mass(C)sI 78.9 grams/m\S\2 * * SV(Teich) 35.2 ml * SI(Teich) 20.6 ml/m\S\2 * SV(cubed) 33.1 ml * SI(cubed) 19.3 ml/m\S\2 * * Ao root diam 2.4 cm * Ao root area 4.5 cm\S\2 * LA dimension 2.6 cm * * LA/Ao 1.1 * LVOT diam 2.0 cm * LVOT area 3.3 cm\S\2 * * LVAd ap4 23.5 cm\S\2 * LVLd ap4 6.7 cm * EDV(MOD-sp4) 69.0 ml * EDV(sp4-el) 69.7 ml * LVAs ap4 14.9 cm\S\2 * LVLs ap4 5.2 cm * ESV(MOD-sp4) 35.5 ml * ESV(sp4-el) 36.5 ml * EF(MOD-sp4) 48.6 % * EF(sp4-el) 47.6 % * * LVAd ap2 19.5 cm\S\2 * LVLd ap2 6.1 cm * EDV(MOD-sp2) 51.8 ml * EDV(sp2-el) 52.5 ml * LVAs ap2 12.3 cm\S\2 * LVLs ap2 5.3 cm * ESV(MOD-sp2) 24.1 ml * ESV(sp2-el) 23.9 ml * EF(MOD-sp2) 53.4 % * EF(sp2-el) 54.4 % * * LVLd %diff -10.02 % * EDV(MOD-bp) 63.0 ml * LVLs %diff 3.5 % * ESV(MOD-bp) 29.2 ml * EF(MOD-bp) 53.7 % * * SV(MOD-sp4) 33.6 ml * SI(MOD-sp4) 19.6 ml/m\S\2 * * SV(MOD-sp2) 27.7 ml * SI(MOD-sp2) 16.2 ml/m\S\2 * * SV(MOD-bp) 33.8 ml * SI(MOD-bp) 19.8 ml/m\S\2 * * SV(sp4-el) 33.1 ml * SI(sp4-el) 19.4 ml/m\S\2 * * SV(sp2-el) 28.6 ml * SI(sp2-el) 16.7 ml/m\S\2 * * * Doppler Measurements and Calculations * MV E max ai 82.0 cm/sec * MV A max ai 97.1 cm/sec * * MV E/A 0.84 * * MV P1/2t max ai 77.0 cm/sec * MV P1/2t 72.3 msec * MVA(P1/2t) 3.0 cm\S\2 * MV dec slope 312.0 cm/sec\S\2 * MV dec time 0.25 sec * * Ao V2 max 118.1 cm/sec * Ao max PG 5.6 mmHg * Ao max PG (full) 0.88 mmHg * GIOVANA(V,A) 3.0 cm\S\2 * GIOVANA(V,D) 3.0 cm\S\2 * * LV V1 max PG 4.7 mmHg * * LV V1 max 108.4 cm/sec * * PA V2 max 73.1 cm/sec * PA max PG 2.1 mmHg * * TR max ai 181.1 cm/sec * *
== END | disposition home or self-care (01) ==
LOC: C.CPL 07:44
PROVIDERS: ATTEND Internal Medicine Hematology
DX: Z01.818 Encounter for other preprocedural examination (principal); C50.911 Malignant neoplasm of unspecified site of right female breast; C50.912 Malignant neoplasm of unspecified site of left female breast; Z17.0 Estrogen receptor positive status [ER+]; C77.1 Secondary and unspecified malignant neoplasm of intrathoracic lymph nodes; C77.3 Secondary and unspecified malignant neoplasm of axilla and upper limb lymph nodes

== ENCOUNTER → 2017-06-11 | Outpatient (CLI) | payer OTHER ==
[2017-06-11 09:36] LABS: BLOOD UREA NITROGEN 19 mg/dl (7-18); CALCIUM 9.2 mg/dl (8.5-10.1); CARBON DIOXIDE 30 mmol/L (21-32); CREATININE 0.65 mg/dl (0.60-1.20); GLUCOSE 127 mg/dl (70-99); POTASSIUM 3.2 mmol/L (3.5-5.1); SODIUM 140 mmol/L (136-145)
== END | disposition home or self-care (01) ==
LOC: C.LAB 07:49
PROVIDERS: ATTEND Internal Medicine
DX: I10 Essential (primary) hypertension (principal)

== ENCOUNTER 2017-06-12 04:57 | Observation (INO) | payer OTHER ==
[~2017-06-12] VITALS: Ht 152.4 cm; Wt 75.0 kg
[~2017-06-12 04:57] MED LIST changes: -AFRINWC INTNAS; -BENZ100C7 PO; -BENZ100C84 PO; -DXM/4 PO; -FMR25 PO; -HYDR12.56 PO; -METO100T44 PO; -OXYM0.0592 INTNAS; -PROC1TAB5 PO; -RANI150T85 PO; -TPRSR/50 PO; -TRAM-10 PO
[2017-06-12] MEDS ORDERED: SODIUM CHLORIDE 0.9% 1000ML 1,000 ML IV STA (05:14)
[2017-06-12] MEDS ORDERED: NITROGLYCERIN 0.4 MG SL PER TAB CHARGE SL PRN ×2 (05:15→07:45)
--- NOTE | 2017-06-12 05:23 | EMERGENCY ROOM VISIT NOTE ---
History First contact with patient: 05:00 Chief Complaint: CARDIAC ASSESSMENT Stated Complaint: CHEST AND LIMBS Nursing Triage Summary: Pt reports "I just feel weird all over". Complaing of tightness in right chest , weakness in legs and arms, headache for 3 weeks, pain in neck and back. hx of intermittent rapid heart beat and HTN. Extensive hx of breast cancer. Recently told breast cancer is back and is to start chemo shortly. Having an a-port inserted this week and had an echo done this morning for chemo clearance. History of Present Illness The patient is a 67 year old female who presents to the Emergency Room for evaluation of chest tightness. Patient notes feeling fatigued recently and then awakening this mroning with chest heaviness/tightness. Primarily substernal but radiates bilateral upper chest, back, and neck. Associated fatigue, mild nausea and feeling weak. Notes HTN with SBP 150s at home this morning when checked. Admits that while at rest no shortness of breath, but just with walking down the tam she is feeling dyspneic. Furthermore, patient notes a 3 week history of increasing headaches. Admits chronic urinary incontinence which isn't new. No focal leg/arm weakness nor bowel issues. She denies fevers, chills, vomiting, rashes, diarrhea, leg swelling/pain/cramping, syncope, palpitations. History of paroxysmal tachycardia though none of that recently. She has history of HTN and metastatic recurrent breast CA. Usually on ASA but being held with plan for port placement in 4 days. She denies cardiac history. Last stress test several years ago. No previous cath. Had Echo yesterday. No medications prior to arrival. Nothing makes chest pressure better nor worse. Denies current chemotherapy. States history of GERD which she is on Omeprazole and that this is not like her gerd symptoms. She had PE 10 yrs ago which she was on anticoagulant for 6 months. Is on no current blood thinners. Review of Systems See HPI for pertinent positives & negatives. A total of 10 systems reviewed and were otherwise negative. Past Medical/Surgical History Medical Problems: (1) Asthma (2) Fracture dislocation of left ankle (3) GERD (gastroesophageal reflux disease) (4) Hypertension Social History Smoking Status: Never Smoker Housing Status: lives with family Current/Historical Medications Scheduled Aspirin (Aspirin Ec), 81 MG PO QAM Azelastine Hcl (Astelin Nasal Greer), 1-2 SPRAYS NA BID Calcium Carbonate-Vitamin D (Calcium + D), 1 TAB PO QAM Dexamethasone (Decadron), 1 DOSE PO UD Fish Oil (Mesa-3), 1 CAP PO QAM Hydrochlorothiazide (Hctz), 12.5 MG PO DAILY Lisinopril (Prinivil), 40 MG PO QPM Metoprolol Succinate (Toprolxl (Toprol-Xl), 200 MG PO QPM Mometasone Furoate-Formoterol (Dulera 100/5 Mcg), 2 AER INH QAM Multivitamin (Multivitamin), 1 TAB PO QAM Omeprazole (Prilosec), 40 MG PO QAM Sertraline (Zoloft), 200 MG PO QPM Scheduled PRN Albuterol Hfa (Ventolin Hfa), 1-2 PUFFS INH Q6H PRN for Shortness of Breath Efqqelk-Smlzewmwcmqss-Duelxwdt (Excedrin Extra Strength), 1 TAB PO 3-4WEEKLY PRN for Pain Diphenoxylate/Atropine (Lomotil), 1 TAB PO BID PRN for Diarrhea Prochlorperazine Maleate (Compazine), 10 MG PO UD PRN for Nausea or Vomiting Rizatriptan Benzoate (Maxalt-Lead Software Development Engineer), 10 MG PO UD PRN for Migraine Tramadol Hcl (Ultram), 50 MG PO Q4H PRN for Pain Physical Exam Vital Signs Date Time Temp Pulse Resp B/P (MAP) Pulse Ox O2 Delivery O2 Flow Rate FiO2 06/12/17 06:30 91 15 162/98 92 Room Air 06/12/17 06:28 154/96 Room Air 06/12/17 06:05 84 96 06/12/17 06:00 83 14 150/94 93 Room Air 06/12/17 05:47 173/98 06/12/17 05:21 91 19 178/107 94 Room Air 06/12/17 05:14 94 Room Air 06/12/17 05:08 88 06/12/17 05:05 93 Room Air 06/12/17 04:59 37.5 86 20 163/97 96 Room Air Physical Exam GENERAL: Patient is mildly appearing and in no acute distress. EYES: No scleral icterus, unremarkable pupils. ENT: Mucous membranes moist, no nasal congestion. NECK: No masses appreciated, no meningismus, trachea is midline. RESPIRATORY: No dyspnea. Clear to auscultation and equal bilaterally. No wheeze , no rhonchi. CARDIOVASCULAR: Regular rate and rhythm. No murmurs, rubs, gallops appreciated. GASTROINTESTINAL: Abdomen soft, nontender, no peritonitis. Bowel sounds positive. No masses appreciated. BACK: No midline tenderness, no CVA tenderness EXTREMITIES: Normal motion all extremities, no cyanosis, no edema. NEUROLOGIC: Alert and oriented, no acute motor or sensory deficits, no focal weakness, cranial nerves grossly intact. SKIN: No rash, no jaundice, no diaphoresis. Medical Decision & Procedures ER Provider Diagnostic Interpretation: Per Radiology. I reviewed imaging and reports. CT HEAD WITHOUT CONTRAST: No intra or extra-axial mass lesions are visualized. There is no CT evidence of acute cortical infarction. There is no evidence of midline shift. There is no acute hemorrhage. No calvarial fractures are visualized. There are minimal white matter hypodensities likely on a small vessel basis. There is no evidence of pathologic ventricular dilatation. There is no evidence of acute sinusitis IMPRESSION: No acute intracranial findings Electronically signed by: Demetrius Ruano M.D. CTA CHEST: FINDINGS: There is a normal caliber thoracic aorta with no evidence for dissection. There is no evidence for pulmonary embolus. No pleural effusions. No pneumothorax. The liver and spleen are unremarkable. No mediastinal or hilar lymphadenopathy. The central airways are patent. The lungs are clear. Nonspecific bibasilar interstitial lung change. IMPRESSION: No evidence for pulmonary embolus. Nonspecific basilar interstitial lung change. Electronically signed by: Steffen Alejo M.D. Laboratory Results 06/12/17 05:05 Red Blood Count 4.63, Mean Corpuscular Volume 90.7, Mean Corpuscular Hemoglobin 31.7, Mean Corpuscular Hemoglobin Concent 35.0, Mean Platelet Volume 9.5, Neutrophils (%) (Auto) 76.6, Lymphocytes (%) (Auto) 7.3, Monocytes (%) (Auto) 12.9, Eosinophils (%) (Auto) 2.2, Basophils (%) (Auto) 0.5, Neutrophils # (Auto ) 4.50, Lymphocytes # (Auto) 0.43, Monocytes # (Auto) 0.76, Eosinophils # (Auto ) 0.13, Basophils # (Auto) 0.03 06/12/17 05:05 Test 06/12/17 05:05 06/12/17 05:13 White Blood Count 5.88 K/uL (4.8-10.8) Red Blood Count 4.63 M/uL (4.2-5.4) Hemoglobin 14.7 g/dL (12.0-16.0) Hematocrit 42.0 % (37-47) Mean Corpuscular Volume 90.7 fL (80-100) Mean Corpuscular Hemoglobin 31.7 pg (25-34) Mean Corpuscular Hemoglobin Concent 35.0 g/dl (32-36) Platelet Count 197 K/uL (130-400) Mean Platelet Volume 9.5 fL (7.4-10.4) Neutrophils (%) (Auto) 76.6 % Lymphocytes (%) (Auto) 7.3 % Monocytes (%) (Auto) 12.9 % Eosinophils (%) (Auto) 2.2 % Basophils (%) (Auto) 0.5 % Neutrophils # (Auto) 4.50 K/uL (1.4-6.5) Lymphocytes # (Auto) 0.43 K/uL (1.2-3.4) Monocytes # (Auto) 0.76 K/uL (0.11-0.59) Eosinophils # (Auto) 0.13 K/uL (0-0.5) Basophils # (Auto) 0.03 K/uL (0-0.2) RDW Standard Deviation 43.6 fL (36.4-46.3) RDW Coefficient of Variation 13.3 % (11.5-14.5) Immature Granulocyte % (Auto) 0.5 % Immature Granulocyte # (Auto) 0.03 K/uL (0.00-0.02) Est Creatinine Clear Calc Drug Dose 70.6 ml/min Estimated GFR () 103.7 Estimated GFR (Non- 89.4 BUN/Creatinine Ratio 22.3 (10-20) Calcium Level 9.1 mg/dl (8.5-10.1) Magnesium Level 2.1 mg/dl (1.8-2.4) Total Creatine Kinase 70 U/L (26-192) Troponin I < 0.015 ng/ml (0-0.045) Bedside Hemoglobin 14.6 g/dl (12.0-16.0) Bedside Hematocrit 43 % (37-47) Bedside Sodium 139 mEq/L (135-144) Bedside Potassium 3.7 mEq/L (3.3-5.0) Bedside Chloride 99 mEq/L (101-112) Bedside Total CO2 27 mEq/l (24-31) Anion Gap 18.0 mmol/L (16-25) Bedside Blood Urea Nitrogen 18 mg/dl (7-18) Bedside Creatinine 0.7 mg/dl (0.6-1.3) Bedside Glucose (other) 117 mg/dl (70-99) Bedside Ionized Calcium (Laith) 1.14 mmol/l (1.12-1.32) Medications Administered Medications (Trade) Dose Ordered Sig/Vanessa Route Start Time Stop Time Status Last Admin Dose Admin Nitroglycerin (Nitrostat Tab) 0.4 mg PRN PRN SL 06/12/17 05:15 07/12/17 05:14 06/12/17 05:22 0.4 MG Sodium Chloride 1,000 ml @ 75 mls/hr [id number] STAT IV 06/12/17 05:14 06/12/17 18:33 06/12/17 06:04 75 MLS/HR Labetalol HCl (Normodyne IV) 10 mg NOW STAT IV 06/12/17 05:54 06/12/17 05:55 DC 06/12/17 06:04 10 MG ECG Per My Interpretation Indication: chest pain Rate (beats per minute): 92 Rhythm: normal sinus Findings: no acute ischemic change, no ectopy, other (Normal QTC, CO intervals. Moderate enlarged P waves.) Medical Decision Differential: Cardiac Ischemia (STEMI, NSTEMI, Unstable Angina, etc), Aortic Dissection, Arrhythmia, Pulmonary Embolism, Pneumonia, Pneumothorax, MSK, Infectious, Pericarditis/Myocarditis, Esophageal Rupture, Gastrointestinal, amongst other pathologies entertained. 67 yr old female with recurrent metastatic breast CA about to start chemo arrives with complaint chest pressure in addition to headache, cough. She is moderately hypertensive on arrival which started improving with SLNTG and Labetalol. Non-classical CP for ACS and thus with wish to avoid anticoagulation given nearing surgical procedure held off on ASA per patient request. Initial EKG, labs, unremarkable. CT PE study as cp/sob with exertion and history PE in setting of CA which was fortunately negative for PE but reveals tissue mass/nodule. No clear evidence this is infectious. Could be due to hypertensive urgency. Discussed with patient and comfortable with coming in for cardiac rule out. Head Trauma GCS Score: 15 Blood Pressure Screening Patient's blood pressure: Elevated blood pressure monitored by hospitalist Impression Primary Impression: Chest tightness or pressure Additional Impressions: Cough Headache Hypertensive urgency Departure Information Referrals Pb Dill M.D. (PCP) Patient Instructions My [facility] Problem Qualifiers
[2017-06-12 05:25] LABS: ISTAT CREATININE 0.7 mg/dl (0.6-1.3); ISTAT IONIZED CALCIUM 1.14 mmol/l (1.12-1.32); ISTAT POTASSIUM 3.7 mEq/L (3.3-5.0)
[2017-06-12] MEDS ORDERED: OPTIRAY 320 IV PRN (05:30)
[2017-06-12 05:49] LABS: BASO % 0.5 %; BASO ABS # 0.03 K/uL (0-0.2); EOS % 2.2 %; EOS ABS # 0.13 K/uL (0-0.5); HEMOGLOBIN 14.7 g/dL (12.0-16.0); IG# 0.03 K/uL (0.00-0.02); LYMPH % 7.3 %; LYMPH ABS # 0.43 K/uL (1.2-3.4); MEAN CELL VOLUME 90.7 fL (80-100); MEAN CORPUSCULAR HEMOGLOBIN 31.7 pg (25-34); MEAN PLATELET VOLUME 9.5 fL (7.4-10.4); MONO % 12.9 %; MONO ABS # 0.76 K/uL (0.11-0.59); NEUT % 76.6 %; PLATELET COUNT 197 K/uL (130-400); RED CELL DISTRIBUTION WIDTH CV 13.3 % (11.5-14.5); RED CELL DISTRIBUTION WIDTH SD 43.6 fL (36.4-46.3); WHITE BLOOD COUNT 5.88 K/uL (4.8-10.8)
[2017-06-12] MEDS ORDERED: LABETALOL HCL IV 5 MG/ML 20ML IV STA ×2 (05:54→06:58)
[2017-06-12 06:16] LABS: BLOOD UREA NITROGEN 15 mg/dl (7-18); CREATININE 0.69 mg/dl (0.60-1.20)
[2017-06-12 06:17] LABS: CALCIUM 9.1 mg/dl (8.5-10.1); CARBON DIOXIDE 27 mmol/L (21-32); SODIUM 138 mmol/L (136-145)
--- NOTE | 2017-06-12 06:26 | DIAGNOSTIC IMAGING REPORT ---
CT HEAD WITHOUT CONTRAST (CT) CLINICAL HISTORY: Increasing headache. Fatigue. History of metastatic breast carcinoma. COMPARISON STUDY: MRI the brain dated 07/07/2015 TECHNIQUE: Axial CT of the brain is performed from the vertex to the skull base. IV contrast was not administered for this examination. A dose lowering technique was utilized adhering to the principles of ALARA. CT DOSE: 537.48 mGy.cm FINDINGS: No intra or extra-axial mass lesions are visualized. There is no CT evidence of acute cortical infarction. There is no evidence of midline shift. There is no acute hemorrhage. No calvarial fractures are visualized. There are minimal white matter hypodensities likely on a small vessel basis. There is no evidence of pathologic ventricular dilatation. There is no evidence of acute sinusitis IMPRESSION: No acute intracranial findings Electronically signed by: Dmeetrius Ruano M.D. 06/12/2017 6:25 AM Dictated Date/Time: 06/12/2017 6:24 AM
[2017-06-12] MEDS ORDERED: PROC1TAB5 PO (06:30)
[2017-06-12] MEDS ORDERED: HYDR12.56 PO (06:30)
[2017-06-12] MEDS ORDERED: DXM/4 PO (06:30)
--- NOTE | 2017-06-12 06:38 | DIAGNOSTIC IMAGING REPORT ---
(CHEST FOR PE) ANGIO WITH CT DOSE: 327.55 mGy.cm HISTORY: Dyspnea chest pain TECHNIQUE: Multiaxial CT images of the chest were performed following the intravenous administration of contrast to evaluate the pulmonary arteries. Maximal intensity projection images were also obtained. A dose lowering technique was utilized adhering to the principles of ALARA. COMPARISON STUDY: 04/19/2010 FINDINGS: There is a normal caliber thoracic aorta with no evidence for dissection. There is no evidence for pulmonary embolus. No pleural effusions. No pneumothorax. The liver and spleen are unremarkable. No mediastinal or hilar lymphadenopathy. The central airways are patent. The lungs are clear. Nonspecific bibasilar interstitial lung change. IMPRESSION: No evidence for pulmonary embolus. Nonspecific basilar interstitial lung change. The above report was generated using voice recognition software. It may contain grammatical, syntax or spelling errors. Electronically signed by: Steffen Alejo M.D. 06/12/2017 6:37 AM Dictated Date/Time: 06/12/2017 6:33 AM
[2017-06-12 06:42] LABS: POTASSIUM 3.7 mmol/L (3.5-5.1)
[2017-06-12 06:43] LABS: GLUCOSE 115 mg/dl (70-99)
[2017-06-12] MEDS ORDERED: HYDROCODONE/HOMATROPINE SYRUP 5MG/1.5MG 5ML UDP PO STA (06:58)
[2017-06-12] MEDS ORDERED: ALUMINUM/MAGNESIUM/SIMETH (MAALOX MAX) 30 ML UDC PO PRN (07:45)
[2017-06-12] MEDS ORDERED: ACETAMINOPHEN 325 MG TAB PO PRN (07:45)
[2017-06-12] MEDS ORDERED: TRAMADOL HCL 50 MG TAB PO PRN (07:45)
[2017-06-12] MEDS ORDERED: ALBUTEROL HFA 8 GM INHALER INH PRN (07:45)
[2017-06-12] MEDS ORDERED: MAGNESIUM HYDROXIDE SUSP 30 ML UDC PO PRN (07:45)
[2017-06-12] MEDS ORDERED: ONDANSETRON INJ 2 MG/ML 2 ML VIAL IV PRN (07:45)
[2017-06-12] MEDS ORDERED: DIPHENOXYLATE/ATROPINE 2.5/0.025MG TAB PO PRN (07:45)
[2017-06-12 07:54] VITALS: BP 135/83; PULSE 83; TEMP 37.2; Ht 152.4 cm; Wt 75.0 kg
--- NOTE | 2017-06-12 08:16 | History and Physical ---
History & Physical Date & Time of Service: Jun 12, 2017 at 08:08 Chief Complaint: Chest And Limbs Primary Care Physician: Pb Dill M.D. History of Present Illness This patient presents with some chest pressure radiating to her arms, she does have a significant history of metastatic breast cancer and is scheduled for knee port placement next week subsequently she has been off any aspirin products. In the ER she did have marked hypertension on presentation once this was controlled her discomfort went away. Patient states this is been a very stressful week as both her and her recently been diagnosed with cancer hers being recurrent and they are both being set up for their first treatment sessions. This patient's been bothered by chronic cough she does suffer from reflux disease nothing has been helping the cough as an outpatient including nasal sprays inhalers and antibiotics and she typically takes omeprazole for her reflux she states this does not feel like reflux and other than last night she has not had this pain be progressive through the week. The patient's also been bothered by headache over the last few weeks she does suffer from migraines and has taken her usual medications without much help In the ER she has had normal laboratories normal EKG normal CT angiogram for any pulmonary embolism and normal CT head She is hypertensive Past Medical/Surgical History Medical Problems: (1) Asthma (2) Chest pain (3) Fracture dislocation of left ankle (4) GERD (gastroesophageal reflux disease) (5) Hypertension 6. Pulmonary embolism 7. Depression 8. SVT 9. Tonsillectomy adenoidectomy Family History Family history is inclusive for heart disease hypertension and also family history of breast cancer Social History Smoking Status: Never Smoker Immunizations History of Influenza Vaccine: No History of Tetanus Vaccine?: No History of Pneumococcal: No History of Hepatitis B Vaccine: No Allergies Coded Allergies: Morphine (Verified Allergy, Intermediate, MAKES HER CRAZY, 06/12/17) Adhesives (Verified Allergy, Unknown, ITCHY SKIN, 06/12/17) Esomeprazole (Verified Adverse Reaction, Unknown, listed on [facility] [place]/ dr. dill consult, 06/12/17) Home Medications Scheduled Aspirin (Aspirin Ec), 81 MG PO QAM Azelastine Hcl (Astelin Nasal [place]), 1-2 SPRAYS NA BID Calcium Carbonate-Vitamin D (Calcium + D), 1 TAB PO QAM Dexamethasone (Decadron), 1 DOSE PO UD Fish Oil ([place]-3), 1 CAP PO QAM Hydrochlorothiazide (Hctz), 12.5 MG PO DAILY Lisinopril (Prinivil), 40 MG PO QPM Metoprolol Succinate (Toprolxl (Toprol-Xl), 200 MG PO QPM Mometasone Furoate-Formoterol (Dulera 100/5 Mcg), 2 AER INH QAM Multivitamin (Multivitamin), 1 TAB PO QAM Omeprazole (Prilosec), 40 MG PO QAM Sertraline (Zoloft), 200 MG PO QPM Scheduled PRN Albuterol Hfa (Ventolin Hfa), 1-2 PUFFS INH Q6H PRN for Shortness of Breath Yplfmlx-Ljavvwomuqoim-Brmmfgut (Excedrin Extra Strength), 1 TAB PO 3-4WEEKLY PRN for Pain Diphenoxylate/Atropine (Lomotil), 1 TAB PO BID PRN for Diarrhea Prochlorperazine Maleate (Compazine), 10 MG PO UD PRN for Nausea or Vomiting Rizatriptan Benzoate (Maxalt-Mobile Product Manager), 10 MG PO UD PRN for Migraine Tramadol Hcl (Ultram), 50 MG PO Q4H PRN for Pain Review of Systems ROS: well nourished well developed, currently symptom-free No double vision blurry vision No problems with speech or swallowing No palpitations, she has had some minor chest pain radiating to her arms not jaw No Wheezing or breathing issues but she has had a chronic cough No abdominal pain nausea vomiting diarrhea changes in appetite or weight No burning urine urine frequency or changes in color No focal joint pain or muscle pain No skin rashes or oral lesions No unusual bruising or bleeding No focused back pain or numbness or loss of strength No changes in memory or confusion Physical Exam Vital Signs Date Time Temp Pulse Resp B/P (MAP) Pulse Ox O2 Delivery O2 Flow Rate FiO2 06/12/17 07:17 96 17 143/97 06/12/17 07:09 95 171/110 06/12/17 06:30 91 15 162/98 92 Room Air 06/12/17 06:28 154/96 Room Air 06/12/17 06:05 84 96 06/12/17 06:00 83 14 150/94 93 Room Air 06/12/17 05:47 173/98 06/12/17 05:21 91 19 178/107 94 Room Air 06/12/17 05:14 94 Room Air 06/12/17 05:08 88 06/12/17 05:05 93 Room Air 06/12/17 04:59 37.5 86 20 163/97 96 Room Air General Appearance: WD/WN, no apparent distress Head: normocephalic, atraumatic Eyes: normal inspection, sclerae normal ENT: hearing grossly normal, pharynx normal Neck: supple, no adenopathy, no carotid bruits Respiratory/Chest: chest non-tender, lungs clear, normal breath sounds Cardiovascular: regular rate, rhythm, no murmur Abdomen/GI: normal bowel sounds, non tender, soft Back: normal inspection, no muscle spasm Extremities/Musculoskelatal: no pedal edema, normal range of motion Neurologic/Psych: alert, oriented x 3 Skin: normal color, warm/dry, no rash Diagnostics Laboratory Results Results Past 24 Hours Test 06/12/17 05:05 06/12/17 05:13 06/12/17 08:03 Range/Units White Blood Count 5.88 4.8-10.8 K/uL Red Blood Count 4.63 4.2-5.4 M/uL Hemoglobin 14.7 12.0-16.0 g/dL Hematocrit 42.0 37-47 % Mean Corpuscular Volume 90.7 80-100 fL Mean Corpuscular Hemoglobin 31.7 25-34 pg Mean Corpuscular Hemoglobin Concent 35.0 32-36 g/dl Platelet Count 197 130-400 K/uL Mean Platelet Volume 9.5 7.4-10.4 fL Neutrophils (%) (Auto) 76.6 % Lymphocytes (%) (Auto) 7.3 % Monocytes (%) (Auto) 12.9 % Eosinophils (%) (Auto) 2.2 % Basophils (%) (Auto) 0.5 % Neutrophils # (Auto) 4.50 1.4-6.5 K/uL Lymphocytes # (Auto) 0.43 1.2-3.4 K/uL Monocytes # (Auto) 0.76 0.11-0.59 K/uL Eosinophils # (Auto) 0.13 0-0.5 K/uL Basophils # (Auto) 0.03 0-0.2 K/uL RDW Standard Deviation 43.6 36.4-46.3 fL RDW Coefficient of Variation 13.3 11.5-14.5 % Immature Granulocyte % (Auto) 0.5 % Immature Granulocyte # (Auto) 0.03 0.00-0.02 K/uL Sodium Level 138 136-145 mmol/L Potassium Level 3.7 3.5-5.1 mmol/L Chloride Level 102 98-107 mmol/L Carbon Dioxide Level 27 21-32 mmol/L Anion Gap 9.0 18.0 16-25 mmol/L Blood Urea Nitrogen 15 7-18 mg/dl Creatinine 0.69 0.60-1.20 mg/dl Est Creatinine Clear Calc Drug Dose 70.6 ml/min Estimated GFR () 103.7 Estimated GFR (Non- 89.4 BUN/Creatinine Ratio 22.3 10-20 Random Glucose 115 70-99 mg/dl Calcium Level 9.1 8.5-10.1 mg/dl Magnesium Level 2.1 1.8-2.4 mg/dl Total Creatine Kinase 70 26-192 U/L Troponin I < 0.015 0-0.045 ng/ml Bedside Hemoglobin 14.6 12.0-16.0 g/dl Bedside Hematocrit 43 37-47 % Bedside Sodium 139 135-144 mEq/L Bedside Potassium 3.7 3.3-5.0 mEq/L Bedside Chloride 99 101-112 mEq/L Bedside Total CO2 27 24-31 mEq/l Bedside Blood Urea Nitrogen 18 7-18 mg/dl Bedside Creatinine 0.7 0.6-1.3 mg/dl Bedside Glucose (other) 117 70-99 mg/dl Bedside Ionized Calcium ([place]) 1.14 1.12-1.32 mmol/l Diagnostic Radiology CT had unremarkable for any intracranial issues other (CT angiogram unremarkable for pulmonary embolism) Normal EKG Impression Assessment and Plan 59-year-old female with recently diagnosed metastatic breast cancer here with chest pain and pressure to her arms no significant coronary artery disease history Chest pain the patient was brought to the telemetry will have repeat troponins if these are unremarkable we will pursue stress testing as she is coming up for a port placement and will need anesthesia clearance for this procedure, due to the upcoming A-Port we are holding off on aspirin at this time unless she got acute EKG changes or elevation of her troponin Uncontrolled hypertension can escalate her metoprolol dose by making a 150 twice daily from her 200 at bedtime continuing lisinopril 40 using hydralazine as needed for blood pressure control Regarding her asthma flare is not on formulary will substitute Advair 250 and continue as needed albuterol Regarding depression anxiety is a big part of her issues currently she is on Zoloft 200 will offer as needed Ativan if needed GERD may be an issue for this she is going to be on pharmacy substituted pantoprazole for omeprazole and we may add Carafate if this becomes more of the final diagnosis Regarding her chronic cough is dry Tessalon Perles as there appears to be no immediate etiology seen on exam to explain this We will use Lovenox for DVT prevention Resuscitation Status VTE Prophylaxis Will order VTE Prophylaxis: Yes
[2017-06-12] MEDS ORDERED: CALCIUM 600MG + VIT D 400 IU TAB PO SCH (09:00)
[2017-06-12] MEDS ORDERED: IV FLUIDS COMPLETED PRN (09:15)
[2017-06-12] MEDS ORDERED: METOPROLOL SUCC 50MG EXT REL TAB PO SCH ×2 (10:00→21:00)
[2017-06-12] MEDS ORDERED: FLUTICASONE/SALMETEROL 250/50 (ADVAIR) 14 PUFF/1 INHALER INH SCH (10:00)
[2017-06-12] MEDS ORDERED: OMEGA-3 (PURIFIED FISH OIL) 1 GM CAP PO SCH (11:00)
[2017-06-12] MEDS ORDERED: BENZONATATE 100MG CAP PO SCH (11:00)
[2017-06-12] MEDS ORDERED: ENOXAPARIN 40 MG/0.4 ML SYR SC SCH (11:00)
[2017-06-12] MEDS ORDERED: MULTIVITAMIN TAB PO SCH (11:00)
[2017-06-12] MEDS ORDERED: PANTOprazole SOD 40 MG TAB PO SCH (11:00)
[2017-06-12] MEDS ORDERED: INFLUENZA ADMINISTRATION CHARGE ONE (11:15)
[2017-06-12] MEDS ORDERED: INFLUENZA VACCINE HIGH DOSE 65+ 0.5 ML SYR IM. ONE (11:15)
[2017-06-12 12:06] VITALS: O2SAT 94
[2017-06-12] MEDS ORDERED: METO200T32 PO (14:34)
[2017-06-12] MEDS ORDERED: TPRSR/50 PO (14:34)
--- NOTE | 2017-06-12 14:37 | Discharge Instructions ---
Discharge Instructions Date of Service Jun 12, 2017. Admission Reason for Admission: Chest Pain Discharge Discharge Diagnosis / Problem: chest pain Discharge Goals Goal(s): Diagnostic testing, Therapeutic intervention Activity Recommendations Activity Limitations: as noted below Lifting Limitations: gradually increase as tolerated Please follow up with outpt stress test Please take 150 mg of metoprolol twice a day, this dose will the one half of your 200 plus one 50 mg tablet twice a day and hold your hydrochlorothiazide. Any issues please contact Dr Dill . Current Hospital Diet Patient's current hospital diet: AHA Diet (Heart Healthy) Discharge Diet Recommended Diet: AHA Diet (Heart Healthy) Pending Studies Studies pending at discharge: no Medical Emergencies . Who to Call and When: Medical Emergencies: If at any time you feel your situation is an emergency, please call 911 immediately. . Non-Emergent Contact Non-Emergency issues call your: Primary Care Provider Call Non-Emergent contact if: temperature is above 101, your pain is unusual for you . . "Provider Documentation" section prepared by Artie Buck. .
[2017-06-12 14:38] VITALS: BP 132/83; PULSE 78; TEMP 37.1; O2SAT 93
[2017-06-12 15:24] VITALS: BP 132/83; PULSE 78; TEMP 37.1; O2SAT 93
[2017-06-12] MEDS ORDERED: BENZ100C7 PO (16:29)
--- NOTE | 2017-06-12 16:29 | Discharge Summary ---
Discharge Summary Date of Service Jun 12, 2017. Discharge Summary Admission Date: Jun 12, 2017 at 09:40 Discharge Date: Jun 12, 2017 Discharge Disposition: Home Principal Diagnosis: Chest pain, negative troponin negative EKG changes Immunizations: Have You Had Influenza Vaccine: No History of Tetanus Vaccine?: No History of Pneumococcal: No History of Hepatitis B Vaccine: No Medication Reconciliation New Medications: Benzonatate (Benzonatate) 100 Mg Cap 100 MG PO BID PRN for Cough, #20 CAP 3 Refills Metoprolol Succinate (Metoprolol Succinate ER) 50 Mg Tabcr 50 MG PO BID, #60 TAB 6 Refills Changed Medications: Metoprolol Succinate (Toprolxl (Toprol-Xl) 200 Mg Tabcr 200 MG PO QPM, #90 TAB 6 Refills (Changed from: Refills: ) one half pill in addition to 50 mg to make 150 mg twice a day Continued Medications: Albuterol Hfa (Ventolin Hfa) 200 Puffs/37257 Mcg Aers 1-2 PUFFS INH Q6H PRN for Shortness of Breath Azelastine Hcl (Astelin Nasal [place]) 200 Sprays/30 Ml [place] 1-2 SPRAYS NA BID, BTL Calcium Carbonate-Vitamin D (Calcium + D) 1 Tab Tab 1 TAB PO QAM Dexamethasone (Decadron) 4 Mg Tab 1 DOSE PO UD Diphenoxylate/Atropine (Lomotil) Tab 1 TAB PO BID PRN for Diarrhea, TAB Fish Oil ([place]-3) 1 Ea Cap 1 CAP PO QAM, CAP Lisinopril (Prinivil) 40 Mg Tab 40 MG PO QPM, TAB Mometasone Furoate-Formoterol (Dulera 100/5 Mcg) 1 Aer Aer 2 AER INH QAM, INHALER Multivitamin (Multivitamin) Tab 1 TAB PO QAM, TAB Omeprazole (Prilosec) 40 Mg Cap 40 MG PO QAM, CAP Prochlorperazine Maleate (Compazine) 10 Mg Tab 10 MG PO UD PRN for Nausea or Vomiting Rizatriptan Benzoate (Maxalt-Met[employer] Dental Technician) 10 Mg Tab 10 MG PO UD PRN for Migraine, TAB Sertraline (Zoloft) 100 Mg Tab 200 MG PO QPM, TAB Tramadol Hcl (Ultram) 50 Mg Tab 50 MG PO Q4H PRN for Pain, #20 TAB PRN PAIN Discontinued Medications: Aspirin (Aspirin Ec) 81 Mg Tab 81 MG PO QAM Rljtrxu-Btuayestmxgxi-Jgqbhujw (Excedrin Extra Strength) 1 Tab Tab 1 TAB PO 3-4WEEKLY PRN for Pain Hydrochlorothiazide (Hctz) 12.5 Mg Cap 12.5 MG PO DAILY Discharge Exam Review of Systems: Constitutional: No fever, No chills Cardiovascular: No chest pain, No edema Abdomen: No pain, No nausea Physical Exam: General Appearance: WD/WN, no apparent distress Neck: supple, no JVD Respiratory/Chest: chest non-tender, lungs clear, normal breath sounds Cardiovascular: regular rate, rhythm, no murmur Hospital Course 59-year-old female with recently diagnosed metastatic breast cancer here with chest pain and pressure to her arms no significant coronary artery disease history Chest pain she has had no elevation of repeat troponins, no further symptoms, and will continue to be holding off on aspirin at this time in preparation for upcoming surgery Uncontrolled hypertension we will increase her metoprolol dose by making a 150 twice daily from her 200 at bedtime continuing lisinopril 40 but holding hydrochlorothiazide at least in the perioperative period Regarding her asthma this is stable and will return to home medicines Regarding depression anxiety is a big part of her issues currently she is on Zoloft 200 and will speak to her pcp regarding ativan, will hope b ashtyn may add some help too. GERD may be an issue for this she is going to be on pharmacy substituted pantoprazole for omeprazole and we may add Carafate if this becomes more of the final diagnosis Regarding her chronic cough is dry Randa Perllis as there appears to be no immediate etiology seen on exam to explain this Total Time Spent: Greater than 30 minutes This includes examination of the patient, discharge planning, medication reconciliation, and communication with other providers. Discharge Instructions Please refer to the electronic Patient Visit Report (Discharge Instructions) for additional information.
[2017-06-12] MEDS ORDERED: LISINOPRIL 40 MG TAB PO SCH (21:00)
[2017-06-12] MEDS ORDERED: SERTRALINE HCL 100 MG TAB PO SCH (21:00)
[2017-06-13] MEDS ORDERED: OXYM0.0592 INTNAS (08:51)
[2017-06-13] MEDS ORDERED: FMR25 PO (08:52)
[2017-06-13] MEDS ORDERED: RANI150T85 PO (08:52)
[2017-06-13] MEDS ORDERED: AFRINWC INTNAS (09:29)
[2017-06-13] MEDS ORDERED: BENZ100C84 PO (09:29)
[2017-06-13] MEDS ORDERED: METO100T44 PO (09:29)
[2017-06-13] MEDS ORDERED: TRAM-10 PO (09:29)
[2017-06-16] MEDS ORDERED: TRAM-10 PO (09:54)
== END 2017-06-12 16:45 | disposition home or self-care (01) ==
LOC: C.EDB 04:58 → ENRESERV 08:10 → C.MED 09:40
PROVIDERS: ADMIT Internal Medicine; ATTEND Internal Medicine
DX: R07.9 Chest pain, unspecified (principal); C50.919 Malignant neoplasm of unspecified site of unspecified female breast; F32.9 Major depressive disorder, single episode, unspecified; J45.909 Unspecified asthma, uncomplicated; F41.9 Anxiety disorder, unspecified; K21.9 Gastro-esophageal reflux disease without esophagitis; I10 Essential (primary) hypertension; Z79.82 Long term (current) use of aspirin; Z79.899 Other long term (current) drug therapy; Z88.5 Allergy status to narcotic agent; Z88.8 Allergy status to other drugs, medicaments and biological substances

== ENCOUNTER → 2017-06-13 | Outpatient (CLI) | payer OTHER ==
[~2017-06-13] MED LIST changes: +AFRINWC INTNAS; +BENZ100C7 PO; +BENZ100C84 PO; +DXM/4 PO; +FMR25 PO; +HYDR12.56 PO; +METO100T44 PO; +OXYM0.0592 INTNAS; +PROC1TAB5 PO; +RANI150T85 PO; +TPRSR/50 PO; +TRAM-10 PO
--- NOTE | 2017-06-13 13:51 | EXERCISE STRESS ECHO ---
*NOTICE TO RECEIVING LIBERTARIAN AGENCY This information is strictly Confidential and protected under [place] law. [place] law prohibits you from making any further disclosure of this information unless further disclosure is expressly permitted by the written consent of the person to whom it pertains or is authorized by law. A general authorization for the release of medical or other information is not sufficient for this purpose. Hospital accepts no responsibility if the information is made available to any other person, INCLUDING THE PATIENT. Interpretation Summary * Name: KEREN COOK Study Date: 06/13/2017 10:31 AM BP: 152/88 mmHg * Patient Location: [facility], [place], [facility]\S\[id number]\S\2 HR: 72 * : 1950 (M/d/yyyy) Gender: Female Height: 60 in * Age: 67 yrs Ethnicity: [place] Weight: 160 lb * Ordering Physician: Artie Buck * Referring Physician: Artie Buck. * Performed By: Sage Perez RUST * * Reason For Study: CHEST PAIN * BSA: 1.7 m2 * -- Conclusions -- * 1. Normal stress echocardiogram at 7.2 METS in a peak heart of 83% predicted maximum. * 2. No exercise-induced chest pain. * 3. No EKG changes. * 4. Baseline echocardiogram notes normal left ventricular systolic function. Procedure Details * ECHOEX, CPT #45416 Left Ventricle * Left ventricular systolic function is normal. * Resting wall motion: Normal. Stress wall motion: Appropriate increase in Left ventricular systolic function and decrease in cavity size. No stress induced segmental wall motion abnormalities. Stress Parameters * Normal baseline electrocardiogram. * Stress ECG: No ST changes. No arrhythmias. * The stress portion of this study was personally supervised by the undersigned interpreting physician. * Rest heart rate was '72' BPM. * Rest blood pressure was '152/88' * Maximum heart rate achieved was 133 bpm. * Maximum heart rate was 87 % of maximum age-predicted heart rate. * Maximum blood pressure was '194/99' * Total exercise time was '6:10' * Maximum exercise MET level achieved was '7.2' METS * Maximum treadmill speed was '3.4' miles per hour. * Maximum treadmill elevation was '14'% grade. * Exercise was terminated due to 'fatigue'
== END | disposition home or self-care (01) ==
LOC: C.CPL 10:24
PROVIDERS: ATTEND Internal Medicine
DX: Z01.810 Encounter for preprocedural cardiovascular examination (principal); R07.9 Chest pain, unspecified

== ENCOUNTER → 2017-06-16 | Day surgery (SDC) | payer OTHER ==
[2017-06-13 08:53] VITALS: BMI 31.0
[~2017-06-16] VITALS: Ht 152.4 cm; Wt 72.7 kg
[~2017-06-16] MED LIST changes: +ATROPINE SULFATE 0.1 MG/ML 5ML SYR IV PRN; +CEFAZOLIN SOD 1 GM VIAL ONE; +EpHEDrine SULFATE INJ 50 MG/ML AMP IV PRN; +FENTANYL CITRATE INJ 50 MCG/1 ML 2 ML VIAL IV PRN; +FENTANYL CITRATE INJ 50 MCG/1 ML 2 ML VIAL ONE; +HEPARIN SOD (PORCINE) 1000 UNIT/ML 10 ML VIAL ONE; +HYDROmorphone INJ 1 MG/ML SYR IV PRN; +LACTATED RINGER'S 1000ML 1,000 ML IV SCH; +LIDOCAINE HCL 1% 20 ML VIAL ONE; +MIDAZOLAM HCL 1 MG/ML 2ML VIAL ONE; +ONDANSETRON INJ 2 MG/ML 2 ML VIAL IV PRN; +ONDANSETRON INJ 2 MG/ML 2 ML VIAL ONE; +PROMETHAZINE HCL INJ 12.5 MG in SODIUM CHLORIDE 0.9% 50ML 50 ML IV PRN; +PROPOFOL IV EMULSION 10 MG/ML 20 ML VIAL IV ONE; +THROMBIN FOR SOLN 20000 UNIT KIT ONE; +TRAMADOL HCL 50 MG TAB PO PRN
[2017-06-16 07:39] VITALS: BP 140/83; PULSE 64; TEMP 36.7; O2SAT 96; Ht 152.4 cm; Wt 72.7 kg
--- NOTE | 2017-06-16 08:42 | Discharge Instructions ---
Discharge Instructions Date of Service Jun 16, 2017. Visit Reason for Visit: Metastatic Breast Cancer Discharge Discharge Diagnosis / Problem: A-port placement Discharge Goals Goal(s): Therapeutic intervention Activity Recommendations Activity Limitations: as noted below Shower/Bathe: keep incision dry (for 2 days) Anesthesia . Post Anesthesia Instructions: If you have had General Anesthesia or IV Sedation: * Do not drive today. * Resume driving when surgeon permits. * Do not make important decisions or sign legal documents today. * Call surgeon for: 1. Temperature elevations greater than 101 degrees F. 2. Uncontrollable pain. 3. Excessive bleeding. 4. Persistent nausea and vomiting. 5. Medication intolerance (nausea, vomiting or rash). * For nausea and vomiting use only clear liquids such as: tea, soda, bouillon until nausea subsides, then gradually increase diet as tolerated. * If you have any concerns or questions, call your surgeon's office. If physician is unavailable and it is an emergency, call 911 or go to the nearest emergency room. . Instructions / Follow-Up Instructions / Follow-Up Dr. Reddy office in 2 weeks for suture removal, call [phone] to schedule Diet Recommendations Recommended Home Diet: no limitations Pending Studies Studies pending at discharge: no Medical Emergencies . Who to Call and When: Medical Emergencies: If at any time you feel your situation is an emergency, please call 911 immediately. . Non-Emergent Contact Non-Emergency issues call your: Surgeon Call Non-Emergent contact if: you have a fever, temperature is above 101.5, your pain is not controlled, wound has increased redness . . "Provider Documentation" section prepared by Fermin Keating. .
--- NOTE | 2017-06-16 09:44 | [facility] Operative Report ---
Operative Report Operative Date Jun 16, 2017. Pre-Operative Diagnosis Metastatic breast cancer, preparing to begin chemotherapy Post-Operative Diagnosis Same as preop Procedure(s) Performed Insertion of A-Port into left cephalic vein Surgeon Dr. Reddy Grants Assistant Surgeon(s) none Estimated Blood Loss 5 cc Findings placed via Lt cephalic vein Specimens none, as per surgeon Drains None Anesthesia Type MAC Complication(s) none Disposition Recovery Room / PACU I attest to the content of the Intraoperative Record and any orders documented therein. Any exceptions are noted below.
--- NOTE | 2017-06-16 10:31 | DIAGNOSTIC IMAGING REPORT ---
CHEST ONE VIEW PORTABLE CLINICAL HISTORY: port placement COMPARISON STUDY: Chest CT June 12, 2017. FINDINGS: No pneumothorax is identified status post interval placement of a left subclavian [id number]-Kfnc. Catheter tip projects over the cavoatrial junction. Surgical clips project over the bilateral chest wall/breast. Cardiac size is normal. Mediastinal contours are normal. There is no evidence for pulmonary edema. IMPRESSION: No pneumothorax following placement of a left subclavian Shttqu-c-Tvws. Electronically signed by: Jeremiah Lamb M.D. 06/16/2017 10:30 AM Dictated Date/Time: 06/16/2017 10:28 AM
--- NOTE | 2017-06-16 10:35 | Anesthesiology Progress Note ---
Anesthesia Post Op Note Date & Time Jun 16, 2017 at 10:35 Vital Signs Pain Intensity: 0 Vital Signs Past 12 Hours Date Time Temp Pulse Resp B/P (MAP) Pulse Ox O2 Delivery O2 Flow Rate FiO2 06/16/17 10:30 36.3 65 16 139/94 95 Room Air 06/16/17 10:20 68 16 145/87 97 Room Air 06/16/17 10:10 72 16 155/95 98 Oxymask 3 06/16/17 10:00 77 16 160/94 98 Oxymask 5 06/16/17 09:52 36.4 86 16 173/97 97 Oxymask 5 06/16/17 07:39 36.7 64 18 140/83 (102) 96 Room Air Notes Mental Status: alert / awake / arousable, participated in evaluation Pt Amnestic to Procedure: Yes Nausea / Vomiting: adequately controlled Pain: adequately controlled Airway Patency, RR, SpO2: stable & adequate BP & HR: stable & adequate Hydration State: stable & adequate Anesthetic Complications: no major complications apparent Awake, doing well, no complaints. VSS.
--- NOTE | 2017-06-16 10:40 | OPERATIVE REPORT ---
DATE OF OPERATION: 06/16/2017 NAME OF OPERATION: Port placement. PREOPERATIVE DIAGNOSIS: Recurrent breast cancer. POSTOPERATIVE DIAGNOSIS: Same. STAFF SURGEON: Walter Reddy MD. ANESTHESIA: 1% plain lidocaine with sedation. DESCRIPTION OF PROCEDURE: The patient was brought in the operating room and placed on the operating table in supine position. A roll was placed between her shoulders. Her chest and neck were prepped and draped in usual fashion. 1% plain lidocaine was used to anesthetize the skin and subcutaneous tissue over the left deltopectoral groove. Incision made carrying dissection down deeply identifying a large cephalic vein which was ligated distally using 2-0 silk suture and then opened. A catheter passed under fluoroscopy into superior vena cava. It was then aspirated and flushed with heparinized solution and secured in place using 2-0 silk suture. A pocket was fashioned in the subcutaneous tissue. The port was attached to the catheter, placed into the pocket and secured using 3-0 Prolene suture. Then aspirated and flushed with heparinized solution. Then the deep tissue reapproximated using 2-0 chromic catgut suture, then the skin reapproximated using 4-0 nylon suture. Dressing applied and patient transferred to recovery room in stable condition. I attest to the content of the Intraoperative Record and any orders documented therein. Any exception s are noted below.
[2017-06-16 10:47] VITALS: BP 140/91; PULSE 65; TEMP 36.9; O2SAT 95
[2017-06-16 11:17] VITALS: BP 122/70; PULSE 71; TEMP 36.7; O2SAT 93
== END | disposition home or self-care (01) ==
LOC: C.ACU 06:52
PROVIDERS: ATTEND Surgery
DX: C50.919 Malignant neoplasm of unspecified site of unspecified female breast (principal); I48.91 Unspecified atrial fibrillation; J45.909 Unspecified asthma, uncomplicated; I10 Essential (primary) hypertension; E78.5 Hyperlipidemia, unspecified; G21.9 Secondary parkinsonism, unspecified; E66.9 Obesity, unspecified; Z68.31 Body mass index [BMI] 31.0-31.9, adult; Z90.13 Acquired absence of bilateral breasts and nipples; Z90.89 Acquired absence of other organs; Z88.6 Allergy status to analgesic agent; Z86.718 Personal history of other venous thrombosis and embolism; Z85.3 Personal history of malignant neoplasm of breast; Z98.51 Tubal ligation status; Z98.890 Other specified postprocedural states; Z79.82 Long term (current) use of aspirin; Z79.899 Other long term (current) drug therapy

== ENCOUNTER 2017-06-27 07:01 | Emergency (ER) | payer OTHER ==
[~2017-06-27] VITALS: Ht 152.4 cm; Wt 72.3 kg
[~2017-06-27 07:01] MED LIST changes: -ASPI-391 PO; -ASPI81TA28 PO; -ASTN; -ATROPINE SULFATE 0.1 MG/ML 5ML SYR IV PRN; -BENZ100C7 PO; -CEFAZOLIN SOD 1 GM VIAL ONE; -DXM/4 PO; -EpHEDrine SULFATE INJ 50 MG/ML AMP IV PRN; -FENTANYL CITRATE INJ 50 MCG/1 ML 2 ML VIAL IV PRN; -FENTANYL CITRATE INJ 50 MCG/1 ML 2 ML VIAL ONE; -HEPARIN SOD (PORCINE) 1000 UNIT/ML 10 ML VIAL ONE; -HYDR12.56 PO; -HYDROmorphone INJ 1 MG/ML SYR IV PRN; -LACTATED RINGER'S 1000ML 1,000 ML IV SCH; -LIDOCAINE HCL 1% 20 ML VIAL ONE; -METO200T32 PO; -MIDAZOLAM HCL 1 MG/ML 2ML VIAL ONE; -ONDANSETRON INJ 2 MG/ML 2 ML VIAL IV PRN; -ONDANSETRON INJ 2 MG/ML 2 ML VIAL ONE; -OXYM0.0592 INTNAS; -PROMETHAZINE HCL INJ 12.5 MG in SODIUM CHLORIDE 0.9% 50ML 50 ML IV PRN; -PROPOFOL IV EMULSION 10 MG/ML 20 ML VIAL IV ONE; -THROMBIN FOR SOLN 20000 UNIT KIT ONE; -TPRSR/50 PO; -TRAMADOL HCL 50 MG TAB PO PRN; -ULT/50 PO
[2017-06-27 07:05] VITALS: TEMP 36.4; Ht 152.4 cm; Wt 72.3 kg
[2017-06-27] MEDS ORDERED: FENTANYL CITRATE INJ 50 MCG/1 ML 2 ML VIAL IV STA (07:18)
[2017-06-27] MEDS ORDERED: ASPIRIN 324 MG CHEW PO STA ×2 (07:18→07:32)
--- NOTE | 2017-06-27 07:25 | EMERGENCY ROOM VISIT NOTE ---
History First contact with patient: 07:10 Chief Complaint: CHEST PAIN Stated Complaint: CHEST PAIN,UPPER BACK,LEFT ARM PAIN Nursing Triage Summary: Substernal CP starting at 0100 described as sharp, intermittent since 0100. Hx rapid heart rate. Denies diaphoresis. Feels nauseated. History of Present Illness The patient is a 67 year old female who presents to the Emergency Room via private vehicle accompanied by with complaints of "chest pain, upper back/left arm pain". The patient states that she awoke with substernal chest pain around 1 AM this morning. She describes it as sharp and intermittent. She states however it has been constant but decreasing slightly. She feels slightly nauseated. She states that it seems to radiate into her left bicep. She points to the substernal region as well as the entire anterior chest as the location of pain that she currently rates as a 7/10. She states that she is currently undergoing chemotherapy for metastatic breast cancer. She is under the care of Dr. Arreaga and receiving Perjeta and Herceptin IV every 3 weeks, and Taxol IV weekly. Her last dose was Friday. She has hx of PE in 2007 and is currently not anticoagulated. She has had 81mg of ASA this AM. She notes the CP is worse with exertion, deep breath and sitting up. Review of Systems A complete 10-point Review of Systems was discussed with the patient, with pertinent positives and negatives listed in the History of Present Illness. All remaining Review of Systems questions can be considered negative unless otherwise specified. Past Medical/Surgical History Medical Problems: (1) Asthma (2) Chest pain (3) Fracture dislocation of left ankle (4) GERD (gastroesophageal reflux disease) (5) Hypertension Family History Non contributory Social History Smoking Status: Never Smoker Housing Status: lives with family Current/Historical Medications Scheduled Calcium Carbonate-Vitamin D (Calcium + D), 1 TAB PO QAM Fish Oil ([place]-3), 1 CAP PO QAM Lisinopril (Prinivil), 40 MG PO QPM Metoprolol Succ (Toprol Xl) (Toprol-Xl ), 150 MG PO BID Mometasone Furoate-Formoterol (Dulera 100/5 Mcg), 2 AER INH PRN Multivitamin (Multivitamin), 1 TAB PO QAM Omeprazole (Prilosec), 40 MG PO QAM Oxymetazoline Hcl (Afrin 0.05% Nasal [place]), 2 SPRAY INTNAS PRN Ranitidine (Zantac), 150 MG PO PRN Sertraline (Zoloft), 200 MG PO QPM Scheduled PRN Albuterol Hfa (Ventolin Hfa), 1-2 PUFFS INH Q6H PRN for Shortness of Breath Benzonatate (Tessalon Perles), 100 MG PO BID PRN for N Diphenoxylate/Atropine (Lomotil), 1 TAB PO BID PRN for Diarrhea Prochlorperazine Maleate (Compazine), 10 MG PO UD PRN for Nausea or Vomiting Rizatriptan Benzoate (Maxalt-[place]ird [place]), 10 MG PO UD PRN for Migraine Tramadol (Ultram), 50 MG PO Q4H PRN for Pain Physical Exam Vital Signs Date Time Temp Pulse Resp B/P (MAP) Pulse Ox O2 Delivery O2 Flow Rate FiO2 06/27/17 11:19 78 124/88 95 06/27/17 08:47 75 18 132/87 94 06/27/17 07:21 75 06/27/17 07:05 36.4 76 18 122/83 99 Room Air Physical Exam VITAL SIGNS - Vital signs and nursing notes were reviewed. Stable. GENERAL - 67-year-old female appearing her stated age who is in no acute distress. Communicates well with provider and answers questions appropriately. SKIN - Without rashes. No meningeal or petechial rash. HEAD - NC/AT. EYES - PERRL with EOMI bilaterally. Sclera anicteric. EARS - No deformities of external structures noted on gross examination bilaterally. NOSE - Midline and without cyanosis. No epistaxis or purulent drainage noted. MOUTH/OROPHARYNX - Without perioral cyanosis. Buccal mucosa pink and moist and without leukoplakia. Tongue midline with equal elevation of palate bilaterally. No tonsillar hypertrophy, erythema, or exudates noted fair. NECK - Neck with FROM. LUNGS - Chest wall symmetric without accessory muscle use, intercostals retractions, or central cyanosis. Normal vesicular breath sounds CTA B/L. No wheezes, rales, or rhonchi appreciated. The anterior chest pain is not reproducible with palpation. CARDIAC - RRR with S1/S2. No murmur, rubs, or gallops appreciated. ABDOMEN - Abdominal contour normal without pulsations or visible masses. BS normoactive all four quadrants. No tenderness, palpable masses, hepatosplenomegaly, or ascites noted. EXTREMITIES - No clubbing or peripheral cyanosis. No pretibial edema present. +5 /5 strength noted in UE/LE bilaterally. NEUROLOGIC - Cranial nerves II through XII grossly intact. Sensory intact to light touch throughout. PSYCH - A&O, and cooperates fully with examiner. Pt is very pleasant and interacts well with examiner. Medical Decision & Procedures ER Provider Diagnostic Interpretation: CHEST ONE VIEW PORTABLE HISTORY: Atypical chest pain, malignancy, hx PE COMPARISON: Chest 06/16/2017. FINDINGS: No pneumothorax. No pleural effusions. The heart remains top normal in size. Left subclavian Port-A-Cath terminates at the distal SVC. No new focal lung consolidations to suggest pneumonia. No evidence for pulmonary edema. There are surgical clips seen within the right axilla. IMPRESSION: No significant change compared to the prior study. No acute process. Electronically signed by: Ole Perry M.D. 06/27/2017 7:40 AM Dictated Date/Time: 06/27/2017 7:39 AM (CHEST FOR PE) ANGIO WITH CT DOSE: 281.94 mGy.cm HISTORY: 67 years-old Female presents with acute chest pain, upper back and left arm pain. History of breast cancer TECHNIQUE: Multiple CTA images of the chest were obtained after the intravenous administration of 91 ml Optiray 320. Coronal and sagittal MIPS were obtained from the axial data set and were submitted for review. A dose lowering technique was utilized adhering to the principles of ALARA. COMPARISON: CTA of the chest 06/12/2017, chest radiograph 06/27/2017, PET CT 04/23/2017. FINDINGS: CTA: Heart is normal in size without pericardial effusion. Thoracic aorta is normal in course and caliber without aneurysm or dissection identified. The imaged great vessels appear patent. There is mild mixed plaquing of the aorta. Left subclavian Ebrwnp-t-Asvq catheter is noted with distal tip in the SVC. The pulmonary arterial tree is opacified to the level of the subsegmental branches and demonstrates no focal filling defects to suggest pulmonary thromboembolic disease. CT CHEST: No dominant thyroid nodule. There is decreased size of the previously described enlarged subcarinal lymph node previously measuring 2.3 x 1.7 cm, now measuring 1.3 x 0.7 cm. Enlarged gastrohepatic lymph node is again seen, previously measuring 2.7 x 2.2 cm, now measuring 2.3 x 1.6 cm however only partially imaged. No new adenopathy about the chest identified. There is no pneumothorax or pleural effusion. Calcified granuloma of the posterior segment right upper lobe. Mild bilateral bronchial wall thickening. Bibasilar groundglass opacities favor atelectasis. There is improved aeration of the left lower lobe from comparison PET CT. Central airways are patent. No suspicious pulmonary nodules to suggest metastasis. No acute abnormality of the imaged upper abdomen. Mild wall thickening of the distal esophagus may be posttreatment related. Postoperative changes of bilateral mastectomy with axillary node dissection. Bones appear intact. Mild multilevel endplate spurring about the spine. No suspicious lytic or blastic bony lesions. IMPRESSION: 1. No acute intrathoracic abnormality identified, specifically no acute aortic pathology or evidence of pulmonary thromboembolic disease. 2. Decreased size of the previously described pathologic subcarinal lymph node. Partially imaged enlarged gastrohepatic lymph node is also mildly decreased in size. No new pathologic adenopathy identified about the chest. 3. Mild wall thickening of the distal esophagus is likely secondary to post-treatment changes. 4. Prior bilateral mastectomy with axillary node dissection. The above report was generated using voice recognition software. It may contain grammatical, syntax or spelling errors. Electronically signed by: Jaron Thomson M.D. 06/27/2017 8:17 AM Dictated Date/Time: 06/27/2017 8:02 AM Laboratory Results 06/27/17 07:35 Red Blood Count 4.01, Mean Corpuscular Volume 89.0, Mean Corpuscular Hemoglobin 31.4, Mean Corpuscular Hemoglobin Concent 35.3, Mean Platelet Volume 9.6, Neutrophils (%) (Auto) 84.0, Lymphocytes (%) (Auto) 12.2, Monocytes (%) (Auto) 2.9, Eosinophils (%) (Auto) 0.7, Basophils (%) (Auto) 0.0, Neutrophils # (Auto) 3.77, Lymphocytes # (Auto) 0.55, Monocytes # (Auto) 0.13, Eosinophils # (Auto) 0.03, Basophils # (Auto) 0.00 06/27/17 07:35 Test 06/27/17 07:35 06/27/17 07:40 06/27/17 09:40 White Blood Count 4.49 K/uL (4.8-10.8) Red Blood Count 4.01 M/uL (4.2-5.4) Hemoglobin 12.6 g/dL (12.0-16.0) Hematocrit 35.7 % (37-47) Mean Corpuscular Volume 89.0 fL (80-100) Mean Corpuscular Hemoglobin 31.4 pg (25-34) Mean Corpuscular Hemoglobin Concent 35.3 g/dl (32-36) Platelet Count 181 K/uL (130-400) Mean Platelet Volume 9.6 fL (7.4-10.4) Neutrophils (%) (Auto) 84.0 % Lymphocytes (%) (Auto) 12.2 % Monocytes (%) (Auto) 2.9 % Eosinophils (%) (Auto) 0.7 % Basophils (%) (Auto) 0.0 % Neutrophils # (Auto) 3.77 K/uL (1.4-6.5) Lymphocytes # (Auto) 0.55 K/uL (1.2-3.4) Monocytes # (Auto) 0.13 K/uL (0.11-0.59) Eosinophils # (Auto) 0.03 K/uL (0-0.5) Basophils # (Auto) 0.00 K/uL (0-0.2) RDW Standard Deviation 41.9 fL (36.4-46.3) RDW Coefficient of Variation 13.1 % (11.5-14.5) Immature Granulocyte % (Auto) 0.2 % Immature Granulocyte # (Auto) 0.01 K/uL (0.00-0.02) Prothrombin Time 10.8 SECONDS (9.0-12.0) Prothromb Time International Ratio 1.0 (0.9-1.1) Activated Partial Thromboplast Time 20.1 SECONDS (21.0-31.0) Partial Thromboplastin Ratio 0.8 Est Creatinine Clear Calc Drug Dose 69.3 ml/min Estimated GFR () 103.7 Estimated GFR (Non- 89.4 BUN/Creatinine Ratio 23.8 (10-20) Calcium Level 8.4 mg/dl (8.5-10.1) Magnesium Level 1.8 mg/dl (1.8-2.4) Total Bilirubin 1.1 mg/dl (0.2-1) Aspartate Amino Transf (AST/SGOT) 33 U/L (15-37) Alanine Aminotransferase (ALT/SGPT) 56 U/L (12-78) Alkaline Phosphatase 76 U/L (45-117) Total Creatine Kinase 45 U/L (26-192) Creatine Kinase MB 1.2 ng/ml (0.5-3.6) Creatine Kinase MB Ratio 2.7 (0-3.0) Total Protein 6.2 gm/dl (6.4-8.2) Albumin 3.0 gm/dl (3.4-5.0) Globulin 3.2 gm/dl (2.5-4.0) Albumin/Globulin Ratio 0.9 (0.9-2) Lipase 129 U/L (73-393) Thyroid Stimulating Hormone (TSH) 1.550 uIu/ml (0.300-4.500) Bedside Hemoglobin 12.2 g/dl (12.0-16.0) Bedside Hematocrit 36 % (37-47) Bedside Sodium 141 mEq/L (135-144) Bedside Potassium 3.0 mEq/L (3.3-5.0) Bedside Chloride 102 mEq/L (101-112) Bedside Total CO2 25 mEq/l (24-31) Anion Gap 18.0 mmol/L (16-25) Bedside Blood Urea Nitrogen 17 mg/dl (7-18) Bedside Creatinine 0.6 mg/dl (0.6-1.3) Bedside Glucose (other) 104 mg/dl (70-99) Bedside Ionized Calcium (Laith) 1.13 mmol/l (1.12-1.32) Troponin I < 0.015 ng/ml (0-0.045) Medications Administered Medications (Trade) Dose Ordered Sig/Vanessa Route Start Time Stop Time Status Last Admin Dose Admin Fentanyl Citrate (Fentanyl Inj) 25 mcg NOW STAT IV 06/27/17 07:18 06/27/17 07:21 DC 06/27/17 07:38 25 MCG Aspirin (Aspirin Chew) 324 mg NOW STAT PO 06/27/17 07:32 06/27/17 07:33 DC 06/27/17 07:34 324 MG Potassium Chloride (Klor-Con M10) 40 meq NOW STAT PO 3/23/18 10:28 06/27/17 10:32 DC 06/27/17 10:35 40 MEQ Potassium Chloride (Klor-Con M10) 40 meq NOW STAT PO 06/27/17 10:52 06/27/17 10:54 DC 06/27/17 11:17 40 MEQ Medical Decision Patient was seen and evaluated as above in room A11. Review was performed of nursing notes and vital signs. After obtaining a thorough history and physical examination the above work up was performed. She presents to us today with chest pain that radiates to her left arm. It is worse with exertion, deep breath and leaning forward. She has a history of PE and is currently undergoing chemotherapy for metastatic breast cancer. She was given full strength aspirin here, as well as fentanyl. She is unable take morphine and notes that she does not want any nitroglycerin as it causes a severe headache. She is resting comfortably in the exam room with stable vital signs. The chest pain at this time is very minimal. Chest xray and Ct chest for PE negative for acute process. She does have a cough. CBC reveals white blood cell count low at 4.49. White blood cell count 4.1. Hemoglobin does reveal interval change from 14.7-12.6. This is after her surgery. Metabolic panel reveals no concerning abnormality. Bilirubin is slightly elevated at 1.1. TSH and lipase normal. Troponin negative. The patient's first troponin was drawn 5-1/2 hours after the onset of her pain. The patient did agree to a 2 hour troponin EKG repeat. She declined admission for further work and her chest pain. This is reasonable as the patient does note she had a recent stress echo. This was reviewed. It was normal. This was done within the past month. The patient was educated upon risks versus benefits. I did do a repeat EKG and troponin near the 2 hour dominick. EKG does reveal flattening in leads 4 5 and 6 of the T- wave but troponin was negative. Patient was again recommended to stay in the hospital but notes she would like to go home. She was educated upon management , worrisome symptoms which to return, benefit versus risk of staying versus going home, and was discharged home in good condition. The repeat troponin was performed greater than 6 hours after the onset of her pain. It is not likely that this is cardiac given the normal stress echo within the past month, negative troponin here 2. However given the EKG changes did recommend admission because of that. Her potassium was low here, and was given potassium chloride here with the other 40 MEQ to be taken at home 1 hour after arriving. Case was discussed with the attending physician. I attest that I have personally reviewed the patient medication list. I attest that I have reviewed the patient's blood pressure and it was found to be elevated likely secondary to situation. In the evaluation and treatment of this patient the following differential diagnoses were entertained: FL, PE, GERD, costochondritis, pericarditis, anxiety , among others. Impression Primary Impression: Chest pain Additional Impression: Hypokalemia Departure Information Dispostion Home / Self-Care Condition GOOD Referrals Pb Dill M.D. (PCP) Patient Instructions My [facility] Additional Instructions You have been treated in the Emergency Department your Chest Pain. As we discussed I recommend to stay however will discharge you home with close follow up . Please take the 40meq of potassium within 1 hr of returning home and have potassium level repeated with family doctor As with any trip to the Emergency Department, you should follow-up with your Primary Care Provider from today's visit. Return to the emergency department if your symptoms persist despite treatment plan outlined above or if the following symptoms occur: increased fevers, chills , worsening nausea/vomiting, blood in your stool or urine. Problem Qualifiers
--- NOTE | 2017-06-27 07:41 | DIAGNOSTIC IMAGING REPORT ---
CHEST ONE VIEW PORTABLE HISTORY: Atypical chest pain, malignancy, hx PE COMPARISON: Chest 06/16/2017. FINDINGS: No pneumothorax. No pleural effusions. The heart remains top normal in size. Left subclavian Port-A-Cath terminates at the distal SVC. No new focal lung consolidations to suggest pneumonia. No evidence for pulmonary edema. There are surgical clips seen within the right axilla. IMPRESSION: No significant change compared to the prior study. No acute process. Electronically signed by: Ole Perry M.D. 06/27/2017 7:40 AM Dictated Date/Time: 06/27/2017 7:39 AM
[2017-06-27] MEDS ORDERED: OPTIRAY 320 IV PRN (07:45)
[2017-06-27 07:48] LABS: EOS % 0.7 %; EOS ABS # 0.03 K/uL (0-0.5); HEMATOCRIT 35.7 % (37-47); HEMOGLOBIN 12.6 g/dL (12.0-16.0); IG# 0.01 K/uL (0.00-0.02); LYMPH % 12.2 %; LYMPH ABS # 0.55 K/uL (1.2-3.4); MEAN CORPUSCULAR HEMOGLOBIN 31.4 pg (25-34); MEAN CORPUSCULAR HGB CONC 35.3 g/dl (32-36); MEAN PLATELET VOLUME 9.6 fL (7.4-10.4); MONO % 2.9 %; MONO ABS # 0.13 K/uL (0.11-0.59); NEUT ABS # 3.77 K/uL (1.4-6.5); PLATELET COUNT 181 K/uL (130-400); RED CELL DISTRIBUTION WIDTH CV 13.1 % (11.5-14.5); RED CELL DISTRIBUTION WIDTH SD 41.9 fL (36.4-46.3); WHITE BLOOD COUNT 4.49 K/uL (4.8-10.8)
[2017-06-27 07:55] LABS: ISTAT CREATININE 0.6 mg/dl (0.6-1.3); ISTAT IONIZED CALCIUM 1.13 mmol/l (1.12-1.32)
[2017-06-27 08:04] LABS: ALT/SGPT 56 U/L (12-78); AST/SGOT 33 U/L (15-37); BLOOD UREA NITROGEN 17 mg/dl (7-18); CALCIUM 8.4 mg/dl (8.5-10.1); CARBON DIOXIDE 25 mmol/L (21-32); CREATININE 0.69 mg/dl (0.60-1.20); GLUCOSE 101 mg/dl (70-99); LIPASE 129 U/L (73-393); POTASSIUM 2.9 mmol/L (3.5-5.1); SODIUM 140 mmol/L (136-145)
[2017-06-27 08:15] LABS: ALKALINE PHOSPHATASE 76 U/L (45-117); CKMB 1.2 ng/ml (0.5-3.6); TOTAL PROTEIN 6.2 gm/dl (6.4-8.2)
--- NOTE | 2017-06-27 08:18 | DIAGNOSTIC IMAGING REPORT ---
(CHEST FOR PE) ANGIO WITH CT DOSE: 281.94 mGy.cm HISTORY: 67 years-old Female presents with acute chest pain, upper back and left arm pain. History of breast cancer TECHNIQUE: Multiple CTA images of the chest were obtained after the intravenous administration of 91 ml Optiray 320. Coronal and sagittal MIPS were obtained from the axial data set and were submitted for review. A dose lowering technique was utilized adhering to the principles of ALARA. COMPARISON: CTA of the chest 06/12/2017, chest radiograph 06/27/2017, PET CT 04/23/2017. FINDINGS: CTA: Heart is normal in size without pericardial effusion. Thoracic aorta is normal in course and caliber without aneurysm or dissection identified. The imaged great vessels appear patent. There is mild mixed plaquing of the aorta. Left subclavian Kqcjqb-c-Fqyu catheter is noted with distal tip in the SVC. The pulmonary arterial tree is opacified to the level of the subsegmental branches and demonstrates no focal filling defects to suggest pulmonary thromboembolic disease. CT CHEST: No dominant thyroid nodule. There is decreased size of the previously described enlarged subcarinal lymph node previously measuring 2.3 x 1.7 cm, now measuring 1.3 x 0.7 cm. Enlarged gastrohepatic lymph node is again seen, previously measuring 2.7 x 2.2 cm, now measuring 2.3 x 1.6 cm however only partially imaged. No new adenopathy about the chest identified. There is no pneumothorax or pleural effusion. Calcified granuloma of the posterior segment right upper lobe. Mild bilateral bronchial wall thickening. Bibasilar groundglass opacities favor atelectasis. There is improved aeration of the left lower lobe from comparison PET CT. Central airways are patent. No suspicious pulmonary nodules to suggest metastasis. No acute abnormality of the imaged upper abdomen. Mild wall thickening of the distal esophagus may be posttreatment related. Postoperative changes of bilateral mastectomy with axillary node dissection. Bones appear intact. Mild multilevel endplate spurring about the spine. No suspicious lytic or blastic bony lesions. IMPRESSION: 1. No acute intrathoracic abnormality identified, specifically no acute aortic pathology or evidence of pulmonary thromboembolic disease. 2. Decreased size of the previously described pathologic subcarinal lymph node. Partially imaged enlarged gastrohepatic lymph node is also mildly decreased in size. No new pathologic adenopathy identified about the chest. 3. Mild wall thickening of the distal esophagus is likely secondary to post-treatment changes. 4. Prior bilateral mastectomy with axillary node dissection. The above report was generated using voice recognition software. It may contain grammatical, syntax or spelling errors. Electronically signed by: Jaron Thomson M.D. 06/27/2017 8:17 AM Dictated Date/Time: 06/27/2017 8:02 AM
[2017-06-27 08:21] LABS: PTT PATIENT 20.1 SECONDS (21.0-31.0)
[2017-06-27] MEDS ORDERED: POTASSIUM CHLORIDE 10 MEQ TABCR PO STA ×2 (10:28→10:52)
[2017-06-27 11:19] VITALS: BP 124/88; PULSE 78; O2SAT 95
== END 2017-06-27 11:21 | disposition home or self-care (01) ==
LOC: C.EDB 07:03 → C.EDA 11:21
DX: E87.6 Hypokalemia (principal); R07.9 Chest pain, unspecified; J45.909 Unspecified asthma, uncomplicated; K21.9 Gastro-esophageal reflux disease without esophagitis; I10 Essential (primary) hypertension

== ENCOUNTER → 2017-08-01 | Outpatient (CLI) | payer OTHER ==
[~2017-08-01] MED LIST changes: -FMR25 PO
--- NOTE | 2017-08-01 10:42 | DIAGNOSTIC IMAGING REPORT ---
LEFT LOWER EXTREMITY VENOUS DOPPLER HISTORY: LEFT LE PAIN/SWELLING, R/O DVT COMPARISON STUDY: None. FINDINGS: There is normal compressibility, flow, and augmentation within the left lower extremity deep venous system. IMPRESSION: No DVT within the left lower extremity. Electronically signed by: Ole Perry M.D. 08/01/2017 10:41 AM Dictated Date/Time: 08/01/2017 10:41 AM
== END | disposition home or self-care (01) ==
LOC: C.ULTR 09:54
PROVIDERS: ATTEND Physician Assistant
DX: C77.1 Secondary and unspecified malignant neoplasm of intrathoracic lymph nodes (principal); C50.911 Malignant neoplasm of unspecified site of right female breast; Z17.0 Estrogen receptor positive status [ER+]; C50.912 Malignant neoplasm of unspecified site of left female breast; R60.0 Localized edema

== ENCOUNTER → 2017-10-23 | Outpatient (CLI) | payer OTHER ==
[~2017-10-23] MED LIST changes: +PROC10TA PO; -PROC1TAB5 PO
--- NOTE | 2017-11-03 10:39 | PULMONARY FUNCTION TEST ---
Pulmonary function study interpretation based off ATS criteria. SPIROMETRY: Within normal limits. BRONCHODILATOR CHALLENGE: Within normal limits/no significant response. LUNG VOLUMES: Within normal limits. DIFFUSION CAPACITY: Mildly reduced. INTERPRETATION: Suggest pulmonary vascular versus cardiac dysfunction, only mild in characteristic. Will need clinical correlation.
== END | disposition home or self-care (01) ==
LOC: C.RC 10:19
PROVIDERS: ATTEND Physician Assistant
DX: J40 Bronchitis, not specified as acute or chronic (principal); J45.909 Unspecified asthma, uncomplicated

== ENCOUNTER → 2017-10-23 | Outpatient (CLI) | payer OTHER ==
--- NOTE | 2017-10-23 14:30 | DIAGNOSTIC IMAGING REPORT ---
VIDEO SWALLOW CLINICAL HISTORY: DYSPHAGIA COMPARISON STUDY: No previous studies for comparison. Fluoroscopy time: 2 minutes. FINDINGS: Left subclavian Lopggh-j-Hgaa is incidentally noted. A 13 mm barium tablet test into the stomach. No aspiration was identified within liquids, nectar thick liquids, pudding or crackers with paste. Note was made of mild esophageal dysmotility. IMPRESSION: 1. No tracheal aspiration. Intact swallowing mechanism. 2. Mild esophageal dysmotility. 3. 13 mm barium tablet passed into the stomach. Electronically signed by: Jeremiah Lamb M.D. 10/23/2017 2:28 PM Dictated Date/Time: 10/23/2017 2:24 PM
--- NOTE | 2017-10-24 16:56 | SWALLOWING EVALUATION ---
REFERRING SPEECH PATHOLOGIST: n/a HISTORY: This 67 year-old female was referred for a VFSS at [facility] in order to address c/o pill dysphagia. The patient has a PMH significant for GERD, hypertension, asthma, chest pain, breast CA with bilateral mastectomy and lymph node metastasis currently undergoing chemotherapy. Currently the patient's diet level is regular. PROCEDURE: The patient was seen in the Radiology Department of [facility] for the VFSS. Cursory examination of the oral cavity revealed adequate dentition. Movement of the articulators was WNL. The patient was seated on a stool and was viewed in both the Anterior-Posterior (A-P) and Lateral planes. Volitional phonation exercises completed in the A-P plane revealed bilateral vocal fold movement and vocal intensity within functional limits. In the lateral plane, the patient was given the following boluses: 1 tsp. thin liquid barium x 2, single swallow thin liquid barium self-presented from a cup, sequential swallows of thin liquid barium self-presented from a straw, 1 tsp. nectar-thick liquid barium, single swallow nectar-thick liquid barium self-presented from a cup, 1 tsp. barium pudding, and 1 club cracker with barium pudding. The patient was then repositioned into the A-P plane and given the following boluses: 1/2" barium tablet and water self-presented from a cup. RESULTS: Oral Stage: Labial seal, lingual control for oral bolus hold, mastication, lingual movement for bolus transfer, and pharyngeal swallow initiation were all timely and complete. No oral-stage dysphagia. Pharyngeal Stage: Velar elevation, laryngeal elevation, anterior hyoid excursion, epiglotiic inversion, laryngeal vestibular closure, pharyngeal stripping wave, pharyngeal contraction, distention and duration of PES opening, tongue-base retraction and pharyngeal clearance were timely/complete/WNL. There was no penetration or aspiration during this study. There was no pharyngeal-stage dysphagia. Esophageal Stage: The patient required 2-3 drinks of water to help a barium table pass through the esophagus and empty into the stomach. This may be indicative of esophageal dysmotility. SUMMARY/RECOMMENDATIONS: This patient presents with no s/s oral-pharyngeal dysphagia; however, there are s/s esophageal dysfunction. The following is recommended: 1. SLIPPERY diet: choose foods that are moist, loose slippery, avoid foods that are doughy, dry, thick, pasty; use condiments as needed to make foods slippery 2. Compensatory Strategies: take medications in a carrier (eg, pudding, thick yogurt); be fully upright for meals and remain fully upright 30-minutes after meals; keep head of bed elevated at least 30-degrees at all times; alternate solids and liquids 1:1 during meals 3. Consideration of f/u with gastroenterology re: s/s esophageal dysfunction. Could also consider completion of a Barium Swallow Study. A summary of the results and recommendations was discussed with the patient immediately following the study. She verbalized understanding and is anticipating f/u with the referring PASiobhan. Thank you for referral of this patient. Please contact me at if any additional information is needed.
== END | disposition home or self-care (01) ==
LOC: C.RAD 12:53
PROVIDERS: ATTEND Physician Assistant
DX: R13.10 Dysphagia, unspecified (principal); K22.4 Dyskinesia of esophagus